=== PATIENT | male | born 1955 | race Caucasian/White ===

== ENCOUNTER → 2019-10-22 08:37 | Outpatient (POV) | payer MEDICARE, OTHER, SELFPAY | PROVIDERS: PCP Dermatology; Visit Provider Dermatology | DX: Z00.00 Encounter for general adult medical examination without abnormal findings (principal) ==

== ENCOUNTER 2019-12-12 18:01 | Emergency (ER) | payer MEDICARE, OTHER, SELFPAY ==
[2019-12-12 18:22] VITALS: BP 159/91; PULSE 79; RESP 19; TEMP 37.2; O2SAT 96; BMI 28.8
--- NOTE | 2019-12-12 18:38 | HMH.EDUTC ---
[facility] Disposition Clinical Impression: Sinusitis Qualifiers: Sinusitis location: unspecified location Chronicity: unspecified Qualified Code(s): J32.9 - Chronic sinusitis, unspecified Disposition: Home, Self-Care Condition on Discharge: Good Instructions: Sinusitis, Sinus Headache, DI for Sinusitis, Azithromycin Additional Instructions: *Monitor Temp, Over the counter Motrin or Tylenol as directed/as needed Tylenol every 4 hours and Motrin every 6 hours (as long as your family doctor has told you that you can take it) for fever or pain. and straight to ER if unable to lower temp less than 101.0 after medication given *Sleep elevated *Humidifier/Vaporizer Monitor temp at least twice daily Take medication as prescribed, follow up immediately if any cough, shortness of breath or worsening of symptoms with family doctor for further evaluation and testing Return if needed Make sure to wash your hands, social distancing at least 6ft, and stay home. Your throat swab was sent for culture. Those results are typically sent to your primary care. Be sure to follow up in 2-3 days with your family doctor/primary care physician if no improvement so they can review those result and treat if necessary. If you don?t have a primary care doctor, I recommend you get one but in the mean time, you will have to return to a walk in clinic Follow up IMMEDIATELY for new or worsening symptoms or no Noticeable improvement over the next 48-72 hours. 911 for difficulty breathing or swallowing Prescriptions: Azithromycin [Z-David 250mg Tab*] 250 mg PO UD DOSE PK #6 tab Transmission Status: Received by [facility] #[id number] Referrals: Calixto Real [Primary Care Provider] - As needed Time of Disposition: 18:54 Medical Decision Making - Alan Inquiry Pt receiving controlled substance: No Alan was queried for this patient: No Vital Signs: 12/12/19 18:22 Temperature 99.0 F Temperature Source Oral Pulse Rate [Left Brachial] 79 Respiratory Rate 19 Blood Pressure [Left Arm] 159/91 H Blood Pressure Mean [Left Arm] 113 Blood Pressure Source [Left Arm] Automatic Cuff Blood Pressure Position [Left Arm] Sitting 02 Sat by Pulse Oximetry 96 Oxygen Delivery Method Room Air - Lab Data Lab results reviewed: Yes: I reviewed the patient's lab results. Lab Results 04/23/20 18:14: Influenza Type A Ag Negative, Influenza Type B Ag Negative 12/12/19 18:14: Strep Scn Rapid Clinic Negative Orders (Tests/Meds): ORDERS Category Date Time Status Strep Screen Confirmation Stat Micro 12/12/19 18:14 Received - Reevaluation(s) Time: 18:49 Reevaluation #1: Discussed and recommended chest xray with patient and he declined, denies any SOA, or chest congestion at this time Denies CP Denies any other problems [facility] HPI - General Stated complaint: Fever, body aches Time Seen by Provider: 12/12/19 18:38 Mode of Arrival: Ambulatory Source of Information: Patient Limitations: No Limitations Description of Symptoms (Recalled from Triage Doc. by RN): PATIENT C/O JOINT PAIN, BODY ACHES, HEADACHE, AND FEVER SINCE LAST NIGHT HEENT Symptoms (Recalled from RN notes): No Resp Symptoms (Recalled from RN notes): No Skin Symptoms (Recalled from RN notes): No MS Symptoms (Recalled from RN notes): No Functional Status (Recalled from RN notes): WNL - History of Present Illness Provider Complaint: Patient states that for the last three days he hasnt been feeling well States that he has been having low grade fever, feeling achy all over, sinus pain and pressure and headache States that he has also had some chills States that last night he was feeling worse and today still not feeling well so family wanted him to come in and get checked Denies cough, denies sore throat denies known exposure to COVID19 - Related Data Previous Rx's Medication Instructions Recorded Azithromycin [Z-David 250mg Tab*] 250 mg PO UD DOSE PK #6 tab 12/12/19 Allergies Allergy
[2019-12-12 18:39] LABS: UTC Strep Screen (Rapid) Negative (Negative)
[2019-12-12 18:40] LABS: UTC Influenza A Antigen Negative (Negative); UTC Influenza B Antigen Negative (Negative)
[2019-12-12 19:01] VITALS: BP 159/91; PULSE 79; RESP 19; TEMP 37.2; O2SAT 96
== END 2019-12-12 19:06 | disposition home or self-care (01) ==
PROVIDERS: Emergency Provider Nurse Practitioner; PCP Family Medicine
DX: J32.9 Chronic sinusitis, unspecified (principal)
CPT/HCPCS: G0463; 87804; 87880; 99202

== ENCOUNTER → 2019-12-17 15:22 | Outpatient (CLI) | payer MEDICARE, OTHER, SELFPAY ==
[2019-12-17 15:52] LABS: Basophils # 0.1 K/mm3 (0-0.2); Basophils % 1.4 % (0.1-2.0); Eosinophils # 0.3 K/mm3 (0.0-0.4); Eosinophils % 8.4 % (0.1-12.0); Hematocrit 42.4 % (42.0-52.0); Hemoglobin 14.6 g/dL (14.1-18.0); Lymphocytes # 0.8 K/mm3 (0.7-4.5); Lymphocytes % 21.2 % (10-50); Mean Corpuscular HGB Conc 34.4 g/dL (31.8-35.4); Mean Corpuscular Hemoglobin 29.9 pg (27.0-31.2); Mean Corpuscular Volume 86.8 fl (80-94); Mean Platelet Volume 7.7 fl (7.4-10.4); Monocytes # 0.3 K/mm3 (0.1-1.0); Monocytes % 8.2 % (1.7-9.3); Neutrophils # 2.3 K/mm3 (1.8-7.8); Neutrophils % 60.8 % (37.0-80.0); Platelet Count 209 K/mm3 (142-424); Red Blood Count 4.89 M/mm3 (4.60-6.20); Red Cell Distribution Width 13.2 % (11.5-17.5); White Blood Count 3.8 K/mm3 (4.8-10.8)
[2019-12-17 16:20] LABS: Chloride 101 mmol/L (98-107); Sodium 140 mmol/L (136-145)
[2019-12-17 16:22] LABS: Alanine Aminotransferase 34 U/L (12-78); Alkaline Phosphatase 65 U/L (38-126); Aspartate Amino Transferase 33 U/L (17-59); Bilirubin,Total 0.3 mg/dl (0.2-1.3); Blood Urea Nitrogen 14 mg/dl (9-20); Carbon Dioxide 31 mmol/L (22.0-30.0); Estimated Glomerular Filt Rate 113 ml/min (>60); GFR (African American) 137 ML/MIN (>60)
[2019-12-17 16:23] LABS: Albumin Level 3.9 g/dl (3.5-5.0); Albumin/Globulin Ratio 1.4 (1.1-1.8); Calcium 9.3 mg/dl (8.4-10.2); Globulin 2.8 g/dL (1.3-3.2); Glucose 104 mg/dl (74-100); Total Protein,Serum 6.7 g/dl (6.3-8.2)
[2019-12-17 16:29] LABS: C-Reactive Protein 11.2 mg/L (0-4)
[2019-12-17 16:45] LABS: Erythrocyte Sedimentation Rate 20 mm/hr (0-20)
[2019-12-17 16:54] LABS: Prostate Specific Ag Screen 0.5 ng/ml (0.0-4.0); Thyroid Stimulating Hormone 1.71 uIU/mL (0.465-4.68)
[2019-12-20 01:07] LABS: IgG P18 Ab. Absent (.); IgG P23 Ab. Absent (.); IgG P28 Ab. Absent (.); IgG P30 Ab. Absent (.); IgG P39 Ab. Absent (.); IgG P41 Ab. Absent (.); IgG P45 Ab. Absent (.); IgG P58 Ab. Absent (.); IgG P66 Ab. Absent (.); IgG P93 Ab. Absent (.); IgM P23 Ab. Absent (.); IgM P39 Ab. Absent (.); IgM P41 Ab. Absent (.)
[2019-12-20 09:24] LABS: Lyme IgG WB Interp. Negative (.); Lyme IgM WB Interp. Negative (.)
== END ==
PROVIDERS: Visit Provider Nurse Practitioner Adult Health
DX: S80.869A Insect bite (nonvenomous), unspecified lower leg, initial encounter (principal); R63.4 Abnormal weight loss; M25.50 Pain in unspecified joint; Z12.5 Encounter for screening for malignant neoplasm of prostate
CPT/HCPCS: 36415; 80053; 84443; 85025; 85651; 86140; 86617; G0103

== ENCOUNTER → 2020-10-20 10:38 | Outpatient (POV) | payer MEDICARE, OTHER, SELFPAY | PROVIDERS: Visit Provider Dermatology | DX: Z00.00 Encounter for general adult medical examination without abnormal findings (principal) ==

== ENCOUNTER 2020-11-03 20:09 | Emergency (ER) | payer MEDICARE, OTHER, SELFPAY ==
[2020-11-03 20:40] VITALS: BP 159/78; PULSE 61; RESP 19; TEMP 36.8; O2SAT 98; BMI 27.6
--- NOTE | 2020-11-03 21:23 | HMH.EDUTC ---
[facility] Disposition Condition on Discharge: Good Time of Disposition: 22:00 <Юлия Lizama E - Last Filed: 11/03/20 21:59> <Vishal Negron - Last Filed: 11/03/20 23:07> Clinical Impression: Nailbed laceration, finger Qualifiers: Encounter type: initial encounter Qualified Code(s): S61.319A - Laceration without foreign body of unspecified finger with damage to nail, initial encounter Disposition: Home, Self-Care Instructions: DI for Laceration Repair, DI for Nail Bed Injury Additional Instructions: sutures out 10-12 days and recheck if any problems Prescriptions: cephALEXin [cephALEXin 500mg capsule*] 500 mg PO TID #30 cap Transmission Status: Pending to [facility] #[id number] Referrals: Calixto Real [Primary Care Provider] - Medical Decision Making - Alan Inquiry Pt receiving controlled substance: No Alan was queried for this patient: No - Radiology Data #1 Image(s): Hand Image Reviewed: Yes I reviewed the patient's radiology image Preliminary Findings: No Fracture Seen <Юлия Lizama - Last Filed: 11/03/20 21:59> Vital Signs: 11/03/20 20:40 11/03/20 22:03 Temperature 98.2 F 97.8 F Temperature Source Oral Oral Pulse Rate [Right Brachial] 61 57 L Respiratory Rate 19 14 Blood Pressure [Right Arm] 159/78 H 166/82 H Blood Pressure Mean [Right Arm] 105 110 Blood Pressure Source [Right Arm] Automatic Cuff Blood Pressure Position [Right Arm] Sitting 02 Sat by Pulse Oximetry 98 98 Oxygen Delivery Method Room Air Orders (Tests/Meds): ED MEDICATIONS Discontinued Medications Generic Name Dose Route Start Last Admin Trade Name Freq PRN Reason Stop Dose Admin Tetanus/Reduced Diphtheria/Acell Pertussis 0.5 ml 11/03/20 21:29 11/03/20 21:36 Tet/Diphth/Pert-Adult 0.5ml Syringe IM 11/03/20 21:30 0.5 ml .ONCE ONE Administration ORDERS Category Date Time Status Hand XR left minimum 3 views [XR hand LT min 3V] Stat Exams 11/03/20 21:29 Taken Medical Decision Narrative: Spoke with Dr Negron and he viewed laceration and patient to be sent to ED for closure of wound due to extending through nailbed (Юлия Lizama E) [facility] HPI - General Mode of Arrival: Ambulatory Source of Information: Patient Limitations: No Limitations Description of Symptoms (Recalled from Triage Doc. by RN): PATIENT STATES HE CUT HIS LEFT PINKY FINGERTIP ON A PIECE OF MACHINERY TODAY HEENT Symptoms (Recalled from RN notes): No Resp Symptoms (Recalled from RN notes): No Skin Symptoms (Recalled from RN notes): Yes MS Symptoms (Recalled from RN notes): No Functional Status (Recalled from RN notes): WNL - History of Present Illness Provider Complaint: Patient states that he was using a piece of machinery about 1630 today when it slipped and cut him on the tip of his left little finger States that it looked like the only thing holding it on was a small piece of skin so he pulled it back up into place and cleaned it with soap and water wrapped it up States that he was concerned [place] he was in the barn for infection so he came in to have it looked at and get a tetanus shot - Worker's Comp Is this a Worker's Comp case?: No <LizamaЮлия watt E - Last Filed: 11/03/20 21:59> - General Source of Information: Spouse, Medical Record - History of Present Illness Onset (ago): hour(s) Location: upper extremity Severity: moderate Associated symptoms: denies other symptoms <Vishal Negron - Last Filed: 11/03/20 23:07> - General Stated complaint: AC 11/03/20@4:30 cut left finger Time Seen by Provider: 11/03/20 20:45 - Related Data Previous Rx's Medication Instructions Recorded cephALEXin [cephALEXin 500mg 500 mg PO TID #30 cap 11/03/20 capsule*] Allergies Allergy/AdvReac Type Severity Reaction Status Date / Time No Known Allergies Allergy Verified 12/12/19 18:28 [facility] History - Hepatitis A Screen Drug use history?: No High risk sexual behaviors?: No History of sexually tr
--- NOTE | 2020-11-03 21:29 | XR_ITS ---
PROCEDURE: XR HAND LT MIN 3V CLINICAL INDICATION: INJURY Pain COMPARISON: No exams were available for comparison FINDINGS: No fracture or dislocation. No lytic or blastic change. There is normal mineralization. The joint spaces are well-preserved. No significant degenerative/arthritic changes. No erosive changes evident. Other findings:None. IMPRESSION: No acute findings. Dictated by: Sawyer De La O MD 11/04/2020 06:51 Sawyer De La O MD in [place] 11/04/2020 06:51
[2020-11-03 22:03] VITALS: BP 166/82; PULSE 57; RESP 14; TEMP 36.6; O2SAT 98; BMI 27.6
[2020-11-03 23:22] VITALS: BP 154/82; PULSE 65; RESP 18; TEMP 36.8; O2SAT 98
== END 2020-11-03 23:27 | disposition home or self-care (01) ==
LOC: UTC 21:31 → ER 21:58
PROVIDERS: Emergency Provider Emergency Medicine; PCP Family Medicine
DX: S61.317A Laceration without foreign body of left little finger with damage to nail, initial encounter (principal); W31.9XXA Contact with unspecified machinery, initial encounter; Y92.018 Other place in single-family (private) house as the place of occurrence of the external cause; Z23 Encounter for immunization
CPT/HCPCS: 11760; 73130; 90715; 99282

== ENCOUNTER 2020-11-16 08:09 | Emergency (ER) | payer MEDICARE, OTHER, SELFPAY ==
[2020-11-16 08:10] VITALS: BP 132/74; PULSE 78; RESP 16; TEMP 36.6; O2SAT 98; BMI 25.7
--- NOTE | 2020-11-16 08:12 | HMH.EDGENADL ---
ED Disposition Referrals: Calixto Real [Primary Care Provider] - Attestation: On , the high probability of a clinically significant, sudden or life threatening deterioration of the following system(s) required my full and direct attention, intervention and personal management. The time I documented below is in addition to time spent performing reported procedures but includes the following listed in this critical care notation. General Adult HPI - General Stated complaint: suture removal - Related Data Previous Rx's Medication Instructions Recorded cephALEXin [cephALEXin 500mg 500 mg PO TID #30 cap 11/03/20 capsule*] Allergies Allergy/AdvReac Type Severity Reaction Status Date / Time No Known Allergies Allergy Verified 12/12/19 18:28 [facility] History - Hepatitis A Screen Attestation statement:: This patient has been screened for Hepatitis A risk factors. - Social History Alcohol Intake: never Occupational Status: other
[2020-11-16 09:25] VITALS: BP 111/75; PULSE 85; RESP 16; TEMP 36.6; O2SAT 98
== END 2020-11-16 09:28 | disposition home or self-care (01) ==
PROVIDERS: Emergency Provider Emergency Medicine; PCP Family Medicine
DX: S61.317D Laceration without foreign body of left little finger with damage to nail, subsequent encounter (principal)
CPT/HCPCS: 99283

== ENCOUNTER → 2021-12-21 07:54 | Outpatient (POV) | payer MEDICARE, OTHER, SELFPAY | PROVIDERS: Visit Provider Dermatology | DX: Z00.00 Encounter for general adult medical examination without abnormal findings (principal) ==

== ENCOUNTER → 2022-04-05 08:10 | Outpatient (POV) | payer MEDICARE, OTHER, SELFPAY | PROVIDERS: Visit Provider Dermatology | DX: Z00.00 Encounter for general adult medical examination without abnormal findings (principal) ==

== ENCOUNTER → 2023-02-23 14:50 | Outpatient (CLI) | payer MEDICARE, OTHER, SELFPAY ==
--- NOTE | 2023-02-23 14:54 | XR_ITS ---
FINAL REPORT CLINICAL HISTORY: cough, decreased lung sounds, dyspnea, fevers FINDINGS: Two views of the chest were obtained. The heart size and pulmonary vascularity are within normal limits. The mediastinum is normal. No acute pulmonary abnormality is identified. There is no pneumothorax. The bony thorax is intact. IMPRESSION: No active cardiopulmonary disease. Reviewed, Interpreted and Dictated by Ryan Bill III, MD Transcribed by Aracelis Gupta Authenticated and [facility]
[2023-02-23 15:02] LABS: Microscopic, Urine URINE MICROSCOPIC (MICROSCOPIC)
[2023-02-23 15:14] LABS: Appearance,Urine CLEAR (Clear); Bilirubin,Urine Negative (Negative); Blood, Urine Negative (Negative); Color,Urine YELLOW (Yellow); Glucose,Urine (UA) Negative (Negative); Ketones,Urine Negative (Negative); Leukocyte Esterase,Urine Negative (Negative); Nitrate,Urine Negative (Negative); PH,Urine 5.5 (5.0-8.5); Protein,Urine TRACE (Negative); Specific Gravity, Urine >= 1.030 (1.005-1.030); Urobilinogen,Urine 0.2 EU/dl (0.2)
[2023-02-23 15:17] LABS: Basophils % 0.2 % (0.1-2.0); Eosinophils % 1.1 % (0.1-12.0); Hematocrit 44.6 % (42.0-52.0); Hemoglobin 14.8 g/dL (14.1-18.0); Lymphocytes # 0.6 K/mm3 (0.7-4.5); Lymphocytes % 23.4 % (10-50); Mean Corpuscular HGB Conc 33.1 g/dL (31.8-35.4); Mean Corpuscular Hemoglobin 29.8 pg (27.0-31.2); Mean Platelet Volume 8.4 fl (7.4-10.4); Monocytes # 0.3 K/mm3 (0.1-1.0); Monocytes % 11.3 % (1.7-9.3); Neutrophils # 1.5 K/mm3 (1.8-7.8); Neutrophils % 63.9 % (37.0-80.0); Platelet Count 127 K/mm3 (142-424); Red Blood Count 4.96 M/mm3 (4.60-6.20); Red Cell Distribution Width 13.4 % (11.5-17.5); White Blood Count 2.4 K/mm3 (4.8-10.8)
[2023-02-23 15:41] LABS: Bacteria,Urine Trace /lpf; Squamous Epithelial Cell,Urine Occasional #/hpf (0-5); WBC,Urine Occasional #/hpf (0-3)
[2023-02-23 15:55] LABS: Erythrocyte Sedimentation Rate 13 mm/hr (0-20)
[2023-02-23 16:01] LABS: Alanine Aminotransferase 27 U/L (12-78); Albumin Level 4.1 g/dl (3.5-5.0); Albumin/Globulin Ratio 1.6 (1.1-1.8); Alkaline Phosphatase 67 U/L (38-126); Amylase 135 U/L (30-110); Anion Gap 12.8 mEq/L (5-15); Aspartate Amino Transferase 44 U/L (17-59); Blood Urea Nitrogen 22 mg/dl (9-20); Calcium 8.6 mg/dl (8.4-10.2); Carbon Dioxide 28 mmol/L (22.0-30.0); Chloride 103 mmol/L (98-107); Chol/HDL Ratio 2.7 (1-3.5); Cholesterol 118 mg/dl (140-200); Estimated Glomerular Filt Rate 74 ml/min (>60); GFR (African American) 90 ML/MIN (>60); Globulin 2.5 g/dL (1.3-3.2); Glucose 93 mg/dl (74-100); HDL Cholesterol 43 mg/dl (40-60); Lipase 334 U/L (23-300); Potassium 4.8 mmoL/L (3.5-5.1); Sodium 139 mmol/L (136-145); Total Protein,Serum 6.6 g/dl (6.3-8.2); Triglycerides 111 mg/dl (30-150); VLDL Cholesterol 22 mg/dL (0-40)
[2023-02-23 16:05] LABS: Bilirubin,Total < 0.1 mg/dl (0.2-1.3)
[2023-02-23 16:13] LABS: C-Reactive Protein 0.6 mg/L (0-4)
[2023-02-23 16:17] LABS: 25-OH Vitamin D, Total 67.6 ng/mL (30-100)
[2023-02-23 16:33] LABS: Prostate Specific Ag Screen 0.3 ng/ml (0.0-4.0); Thyroid Stimulating Hormone 1.66 uIU/mL (0.465-4.68)
[2023-02-23 16:54] LABS: Vitamin B12 > 1000 pg/mL (239-931)
[2023-02-24 11:28] LABS: Adenovirus F 40/41, stool Not Detected (NotDetected); Astrovirus Not Detected (NotDetected); Campylobacter Not Detected (NotDetected); Clostridium Difficile A/B, PCR Not Detected (NotDetected); Cryptosporidium Not Detected (NotDetected); Cyclospora Cayetanesis Not Detected (NotDetected); Entamoeba histolytica Not Detected (NotDetected); Enteroaggregative E coli Not Detected (NotDetected); Enterotoxigenic E coli Not Detected (NotDetected); Giardia lamblia Not Detected (NotDetected); Norovirus Not Detected (NotDetected); Plesimonas Shigalloides, PCR Not Detected (NotDetected); Rotavirus A Not Detected (NotDetected); Salmonella, PCR Not Detected (NotDetected); Sapovirus Not Detected (NotDetected); Shiga-like toxin E coli Not Detected (NotDetected); Shigella Enterovasive E coli Not Detected (NotDetected); Vibrio Cholerae Not Detected (NotDetected); Vibrio, PCR Not Detected (NotDetected); Yersinia Entercolitica, PCR Not Detected (NotDetected)
[2023-02-24 19:07] LABS: Enteropathogenic E coli Detected (NotDetected)
[2023-02-25 08:17] LABS: Testosterone,Total 162 ng/dL (264-916)
== END ==
PROVIDERS: PCP Nurse Practitioner Family; Visit Provider Nurse Practitioner Family
DX: R05.9 Cough, unspecified (principal); R06.89 Other abnormalities of breathing; E55.9 Vitamin D deficiency, unspecified; R53.83 Other fatigue; E78.9 Disorder of lipoprotein metabolism, unspecified; Z12.5 Encounter for screening for malignant neoplasm of prostate; M25.50 Pain in unspecified joint; R10.12 Left upper quadrant pain; Z13.1 Encounter for screening for diabetes mellitus; Z13.220 Encounter for screening for lipoid disorders; R19.7 Diarrhea, unspecified
CPT/HCPCS: 71046; 80053; 80061; 81001; 82150; 82306; 82607; 83690; 84403; 84443; 85025; 85651; 86140; 87086; 87506; G0103

== ENCOUNTER → 2023-02-28 07:37 | Outpatient (CLI) | payer MEDICARE, OTHER, SELFPAY ==
--- NOTE | 2023-02-28 07:43 | CT_ITS ---
FINAL REPORT TECHNIQUE: Axial CT images of the abdomen and pelvis were obtained before and after the administration of IV contrast. Oral contrast was administered.This study was performed with techniques to keep radiation doses as low as reasonably achievable (ALARA). Individualized dose reduction techniques using automated exposure control or adjustment of mA and/or kV according to the patient''s size were employed. CLINICAL HISTORY: LUQ pain, elevated lipase and amylase COMPARISON: None FINDINGS: Abdomen: There are several small nodules noted and both lower lung kim, the largest of which is a 4 mm nodule in the right middle lobe. Moderate coronary artery calcification is seen. There are several small subcentimeter hepatic cysts present. There is a small calcification immediately adjacent to the liver seen best on axial image #37 that may represent a small 2 mm stone in the cystic duct.. The spleen is unremarkable. No adrenal masses present. The pancreas has an unremarkable appearance. The kidneys enhance normally. The aorta is normal in caliber. There is no free fluid or adenopathy. No mass or abnormal fluid collection is seen. Precontrast images demonstrate no evidence of nephrolithiasis. Pelvis: The appendix is not well visualized and may have been surgically resected. The urinary bladder is unremarkable. There are postoperative changes in the sigmoid colon. There are multiple slightly enlarged inguinal nodes, a nonspecific finding but may be reactive. There is no evidence of bowel obstruction. IMPRESSION: Several small nodules are present in the lower lung kim bilaterally, the largest measuring 4 mm in the right middle lobe. According to the Fleischner Society guidelines, if the patient is at low risk no follow-up is necessary. If the patient is a high risk patient a 12-month follow-up CT is suggested. Moderate coronary artery calcifications. Questionable small stone in the region of the cystic duct measuring 2 mm in size. Multiple slightly enlarged inguinal nodes, nonspecific but may be reactive. Reviewed, Interpreted and Dictated by Ryan Bill III, MD Transcribed by Hannah Kumari Authenticated and [facility]
== END ==
PROVIDERS: PCP Nurse Practitioner Family; Visit Provider Nurse Practitioner Family
DX: R10.12 Left upper quadrant pain (principal); R74.8 Abnormal levels of other serum enzymes
CPT/HCPCS: 74178; Q9967

== ENCOUNTER → 2023-03-28 08:38 | Outpatient (CLI) | payer MEDICARE, OTHER, SELFPAY ==
[2023-03-28 09:06] VITALS: BP 156/76; PULSE 58; RESP 16; O2SAT 98
[2023-03-28 09:30] VITALS: BP 152/80; PULSE 56; RESP 16; O2SAT 97
== END ==
PROVIDERS: PCP Nurse Practitioner Family; Visit Provider Internal Medicine
DX: I25.10 Atherosclerotic heart disease of native coronary artery without angina pectoris (principal); I25.84 Coronary atherosclerosis due to calcified coronary lesion
CPT/HCPCS: 75574; Q9967

== ENCOUNTER 2023-05-03 08:25 | Day surgery (SDC) | payer MEDICARE, OTHER, SELFPAY ==
[2023-05-03] VITALS (12 sets, daily range): BP systolic 100–138; BP diastolic 53–81; PULSE 47–58; RESP 16–20; TEMP 36.6; O2SAT 95–100; BMI 26.8
--- NOTE | 2023-05-03 07:09 | IR_ITS ---
APPROVED REPORT Patient Location: Outpatient PROCEDURES Left heart catheterization Left ventriculogram Selective coronary angiogram INDICATION Known coronary artery disease, Angina pectoris, Abnormal calcium score greater than 1000 Informed consent was obtained prior to the procedure. COMPLICATIONS None Estimated Blood Loss: Less than 10 mls TECHNIQUE One percent lidocaine used to anesthetize the right anterior aspect of the wrist. The right radial artery was accessed via the Seldinger technique. A 6 Montserratian sheath was placed in the right radial artery. 2.5 mg of Verapamil, 800 mcg of nitroglycerin, 1mg Lidocaine and 5000 U Heparin were given through the arterial sheath. The papa catheter was also used to perform left heart catheterization, left ventriculogram and selective coronary angiogram. At the end of the procedure the sheath was removed good hemostasis was achieved using Traclet band, patient was transferred to the postop holding area in stable condition. ANGIOGRAPHIC RESULTS The left main artery Has distal eccentric 30% stenosis The left anterior descending artery Has ostial eccentric 30 to 40% stenosis with mid vessel diffuse 10 to 20% stenoses. A large first diagonal artery has an ostial 40 to 50% stenosis The circumflex artery Is a nondominant vessel and gives rise to a small 1 mm first obtuse marginal artery which has an ostial 90% stenosis. The remaining circumflex artery has 20% diffuse stenoses The right coronary artery Is a dominant vessel and has diffuse 20% stenoses with a focal 30 to 40% proximal stenosis. The remaining vessel has diffuse 20% stenosis The NIEVES ventriculogram reveals Normal 65% The left ventricular end-diastolic pressure 10 mmHg IMPRESSION Eccentric distal left main disease and proximal LAD disease which in itself is a higher risk lesion however both lesions are nonflow limiting and best managed medically Severe disease in a small obtuse marginal artery too small for percutaneous intervention Mild to moderate disease throughout the dominant right coronary artery as described above Normal ejection fraction Normal left ventricular end-diastolic pressure PLAN 1. These lesions are best managed medically. 2. Recommend LDL at 55 or less to be achieved with high intensity statin 3. Aggressive risk factor modification 4. Standard therapy for ischemic heart disease Electronically signed by : Sixto Oconnell MD 05/03/2023 10:12:51
[2023-05-03 09:02] LABS: Basophils % 0.3 % (0.1-2.0); Hemoglobin 13.5 g/dL (14.1-18.0); Lymphocytes # 1.4 K/mm3 (0.7-4.5); Lymphocytes % 21.2 % (10-50); Mean Corpuscular Hemoglobin 30.1 pg (27.0-31.2); Mean Corpuscular Volume 91.3 fl (80-94); Mean Platelet Volume 8.4 fl (7.4-10.4); Monocytes # 0.5 K/mm3 (0.1-1.0); Monocytes % 7.4 % (1.7-9.3); Neutrophils # 3.9 K/mm3 (1.8-7.8); Neutrophils % 57.1 % (37.0-80.0); Platelet Count 214 K/mm3 (142-424); Red Cell Distribution Width 14.8 % (11.5-17.5); White Blood Count 6.8 K/mm3 (4.8-10.8)
[2023-05-03 09:13] LABS: Anion Gap 8.2 mEq/L (5-15); Blood Urea Nitrogen 16 mg/dl (9-20); Calcium 8.8 mg/dl (8.4-10.2); Carbon Dioxide 30 mmol/L (22.0-30.0); Chloride 106 mmol/L (98-107); Creatinine Clearance Estimated 95 mL/min (50-200); Estimated Glomerular Filt Rate 112 ml/min (>60); GFR (African American) 136 ML/MIN (>60); Glucose 98 mg/dl (74-100); Potassium 4.2 mmoL/L (3.5-5.1); Sodium 140 mmol/L (136-145)
== END 2023-05-03 12:59 | disposition home or self-care (01) ==
LOC: CATHLAB 08:27
PROVIDERS: PCP Nurse Practitioner Family; Visit Provider Internal Medicine
DX: I10 Essential (primary) hypertension (principal); I25.110 Atherosclerotic heart disease of native coronary artery with unstable angina pectoris; R94.31 Abnormal electrocardiogram [ECG] [EKG]; Z79.899 Other long term (current) drug therapy
CPT/HCPCS: 80048; 85025; 93458; 99152; C1725; C1769; J1644; Q9967

== ENCOUNTER → 2023-05-31 08:56 | Outpatient (CLI) | payer MEDICARE, OTHER, SELFPAY ==
[2023-05-31 10:09] LABS: Basophils # 0.1 K/mm3 (0-0.2); Basophils % 0.7 % (0.1-2.0); Eosinophils # 0.6 K/mm3 (0.0-0.4); Eosinophils % 9.2 % (0.1-12.0); Hematocrit 43.8 % (42.0-52.0); Hemoglobin 14.8 g/dL (14.1-18.0); Lymphocytes # 1.4 K/mm3 (0.7-4.5); Lymphocytes % 21.5 % (10-50); Mean Corpuscular HGB Conc 33.8 g/dL (31.8-35.4); Mean Corpuscular Hemoglobin 31.9 pg (27.0-31.2); Mean Corpuscular Volume 94.3 fl (80-94); Monocytes # 0.4 K/mm3 (0.1-1.0); Monocytes % 6.2 % (1.7-9.3); Neutrophils # 4.2 K/mm3 (1.8-7.8); Neutrophils % 62.4 % (37.0-80.0); Platelet Count 208 K/mm3 (142-424); Red Blood Count 4.65 M/mm3 (4.60-6.20); Red Cell Distribution Width 14.3 % (11.5-17.5); White Blood Count 6.7 K/mm3 (4.8-10.8)
[2023-05-31 10:21] LABS: Hemoglobin A1C 5.4 % (4.0-6.0)
[2023-05-31 10:31] LABS: Alanine Aminotransferase 24 U/L (12-78); Albumin Level 4.3 g/dl (3.5-5.0); Albumin/Globulin Ratio 1.5 (1.1-1.8); Alkaline Phosphatase 68 U/L (38-126); Anion Gap 10.1 mEq/L (5-15); Aspartate Amino Transferase 23 U/L (17-59); Bilirubin,Total 0.5 mg/dl (0.2-1.3); Blood Urea Nitrogen 17 mg/dl (9-20); Calcium 9.5 mg/dl (8.4-10.2); Carbon Dioxide 30 mmol/L (22.0-30.0); Chloride 105 mmol/L (98-107); Estimated Glomerular Filt Rate 112 ml/min (>60); GFR (African American) 136 ML/MIN (>60); Globulin 2.8 g/dL (1.3-3.2); Glucose 107 mg/dl (74-100); Potassium 5.1 mmoL/L (3.5-5.1); Sodium 140 mmol/L (136-145); Total Protein,Serum 7.1 g/dl (6.3-8.2)
[2023-06-06 11:42] LABS: LDL-C 45; LDL-P 383
[2023-06-06 11:43] LABS: Cholesterol, Total 112; HDL-C 57; Triglycerides 37
[2023-06-06 11:44] LABS: LP-IR Score 26
== END ==
PROVIDERS: Physician Assistant; PCP Family Medicine; Visit Provider Family Medicine
DX: E72.10 Disorders of sulfur-bearing amino-acid metabolism, unspecified (principal); R73.9 Hyperglycemia, unspecified; I10 Essential (primary) hypertension; E78.5 Hyperlipidemia, unspecified
CPT/HCPCS: 36415; 80053; 83036; 83090; 83704; 85025

== ENCOUNTER → 2023-06-15 09:20 | Outpatient (CLI) | payer MEDICARE, OTHER, SELFPAY | PROVIDERS: PCP Family Medicine; Visit Provider Physician Assistant | DX: I25.10 Atherosclerotic heart disease of native coronary artery without angina pectoris (principal) ==

== ENCOUNTER 2023-11-22 12:26 | Outpatient (CLI) | payer MEDICARE, OTHER, SELFPAY ==
--- NOTE | 2023-11-22 12:55 | CA_ITS ---
FINAL REPORT TECHNIQUE: Color Doppler, duplex Doppler and martino scale sonography of the bilateral neck arterial vasculature was performed. Velocities were measured in the carotid arteries. Stenosis evaluation based on the validated velocity criteria. CLINICAL HISTORY: HLD,CAD,HTN,BLADIMIR FINDINGS: The peak systolic velocity of the right common carotid artery is 108 cm/s. The peak systolic velocity of the right internal carotid artery is 88 cm/s and end diastolic velocity 17 cm/s. The ICA/CCA ratio is 1.1. A small amount of plaque is present. The right external carotid artery is patent. The right vertebral artery is patent with antegrade flow. The peak systolic velocity of the left common carotid artery is 102 cm/s. The peak systolic velocity of the left internal carotid artery is 101 cm/s and end diastolic velocity 29 cm/s. The ICA/CCA ratio is 1.5. A small amount of plaque is present. The left external carotid artery is patent.The left vertebral artery is patent with antegrade flow. IMPRESSION: Less than 50% bilateral carotid stenoses. Bilateral patent vertebral arteries with antegrade flow. If indicated, CTA or MRA could further evaluate. Reviewed, Interpreted and Dictated by Ryan Bill III, MD Transcribed by Isis Solorzano Authenticated and [facility]
== END 2023-11-22 23:59 ==
LOC: RT 12:27
PROVIDERS: PCP Internal Medicine; Visit Provider Physician Assistant
DX: R94.31 Abnormal electrocardiogram [ECG] [EKG]; I10 Essential (primary) hypertension; E78.5 Hyperlipidemia, unspecified; I25.10 Atherosclerotic heart disease of native coronary artery without angina pectoris; R09.89 Other specified symptoms and signs involving the circulatory and respiratory systems
CPT/HCPCS: 93880

== ENCOUNTER 2024-10-21 08:38 | Outpatient (CLI) | payer MEDICARE, OTHER, SELFPAY ==
[2024-10-21 09:05] LABS: Basophils % 0.6 % (0.1-2.0); Eosinophils # 0.4 K/mm3 (0.0-0.4); Eosinophils % 6.4 % (0.1-12.0); Hematocrit 41.9 % (42.0-52.0); Hemoglobin 14.4 g/dL (14.1-18.0); Lymphocytes # 1.2 K/mm3 (0.7-4.5); Lymphocytes % 19.1 % (10-50); Mean Corpuscular HGB Conc 34.4 g/dL (31.8-35.4); Mean Corpuscular Hemoglobin 31.1 pg (27.0-31.2); Mean Corpuscular Volume 90.5 fl (80-94); Mean Platelet Volume 10.1 fl (7.4-10.4); Monocytes # 0.6 K/mm3 (0.1-1.0); Monocytes % 9.3 % (1.7-9.3); Neutrophils # 4.2 K/mm3 (1.8-7.8); Neutrophils % 64.4 % (37.0-80.0); Platelet Count 234 K/mm3 (142-424); Red Blood Count 4.63 M/mm3 (4.60-6.20); Red Cell Distribution Width 13.3 % (11.5-17.5); White Blood Count 6.5 K/mm3 (4.8-10.8)
[2024-10-21 09:38] LABS: Alanine Aminotransferase 21 U/L (12-78); Albumin Level 4.2 g/dl (3.5-5.0); Anion Gap 9.3 mEq/L (5-15); Aspartate Amino Transferase 22 U/L (17-59); Bilirubin,Total 0.3 mg/dl (0.2-1.3); Blood Urea Nitrogen 21 mg/dl (9-20); Calcium 9.3 mg/dl (8.4-10.2); Carbon Dioxide 29 mmol/L (22.0-30.0); Chloride 106 mmol/L (98-107); Estimated Glomerular Filt Rate 96 ml/min (>60); GFR (African American) 116 ML/MIN (>60); Globulin 2.3 g/dL (1.3-3.2); Glucose 103 mg/dl (74-100); Potassium 4.3 mmoL/L (3.5-5.1); Sodium 140 mmol/L (136-145); Total Protein,Serum 6.5 g/dl (6.3-8.2)
[2024-10-21 09:39] LABS: Albumin/Globulin Ratio 1.8 (1.1-1.8); Alkaline Phosphatase 71 U/L (38-126); Chol/HDL Ratio 1.9 (1-3.5); Cholesterol 104 mg/dl (140-200); HDL Cholesterol 56 mg/dl (40-60); Triglycerides 31 mg/dl (30-150); VLDL Cholesterol 6 mg/dL (0-40)
[2024-10-21 09:49] LABS: Direct LDL Cholesterol 36.18 mg/dL (100-129)
[2024-10-21 10:10] LABS: Hemoglobin A1C 5.4 % (4.0-6.0)
== END 2024-10-21 23:59 | disposition home or self-care (01) ==
LOC: LAB 08:40
PROVIDERS: PCP Internal Medicine; Visit Provider Internal Medicine
DX: Z00.00 Encounter for general adult medical examination without abnormal findings (principal); Z13.220 Encounter for screening for lipoid disorders; Z13.1 Encounter for screening for diabetes mellitus; I11.9 Hypertensive heart disease without heart failure
CPT/HCPCS: 36415; 80053; 80061; 83036; 85025

== ENCOUNTER 2025-02-14 09:32 | Outpatient (CLI) | payer MEDICARE, OTHER, SELFPAY ==
--- OUTSIDE RECORDS SUMMARY | 2020-09-27 04:15 | XMS_ITS | Continuity of Care Document ---
Author Name [employer] Organization [facility] Care Team Providers Care Cardiac Monitor Technician Name Role Phone [facility] Unavailable Unavailable Medications Combined list of outpatient medications from Department of Defense and Veterans Affairs facilities.Medications provided include 1) outpatient medications from the last 15 months, and 2) patient-reported medications. Medication Details Route Status Patient Instructions Prescription Expires Prescription Number Last Dispense Date Ordering Provider Order Date Order Qty Source CHOLECALCIF AMANDA 25MCG (1,000UNIT) TAB TAKE ONE TABLET BY MOUTH DAILY ORAL ACTIVE [facility]av LAN [facility] LYSINE TAB TAKE 1 CAPSULES BY MOUTH DAILY ORAL ACTIVE [facility]anav LAN [facility] MULTIVITAMI NS W/MINERALS CAP/TAB TAKE 1 CAP(S)/T AB BY MOUTH DAILY ORAL ACTIVE [facility] Immunizations Combined list of available immunizations from the Department of Defense and Veterans Affairs facilities. Immunization Series Date Given Administered By Site Reaction Lot Number CVX Code Drug Library Technology Instructor Status Comments Source COVID-19 (PFIZER), MRNA, LNP-S, PF, 30 MCG/0.3 ML DOSE 2 2020 208 complet ed PFR; [id number]; [facility] COVID-19 (PFIZER), MRNA, LNP-S, PF, 30 MCG/0.3 ML DOSE 1 2020 208 complet ed PFR; [id number]; 1 [facility]
--- OUTSIDE RECORDS SUMMARY | 2025-01-02 07:15 | XMS_ITS | Encounter Summary ---
Author Organization [place] [address] Care Team Providers Care Relief Man Name Role Phone Amber Suarez MD Unavailable [phone] Grace Milian RN Unavailable [phone] Encounter Details Date Type Department Care Team (Latest Contact Info) Description 01/02/2025 7:15 AM EDT - 01/02/2025 8:25 AM EDT Hospital Encounter [facility] [address] [place], [place] [id number] Amber Suarez MD [address] [place] [address] Lung nodules Discharge Disposition: Home or Self Care Social History Tobacco Use Types Packs/Day Years Used Date Smoking Tobacco: Never Passive Smoke Exposure: Never Smokeless Tobacco: Never Alcohol Use Standard Drinks/Week Comments Not Currently 0 (1 standard drink = 0.6 oz pur e alcohol) PHQ-2 Answer Date Recorded PHQ-2 Total Score 0 09/11/2023 Sex and Gender Information Value Date Recorded Sex Assigned at Not on file Legal Sex Male 3:19 PM EDT Gender Identity Not on file Sexual Orientation Not on file documented as of this encounter Medications at Time of Discharge amLODIPine (NORVASC) 5 mg Oral Tablet Take 5 mg by mouth daily. aspirin 81 mg Oral Tablet, Delayed Release (E.C.) Take 81 mg by mouth daily. atorvastatin (LIPITOR) 40 mg Oral Tablet Take 40 mg by mouth daily. calcium carbonate-vitamin D3 250 mg-3.125 mcg (125 unit) Oral Tablet Take 1 Tablet by mouth 2 times daily (with meals). lisinopriL (PRINIVIL;ZESTRIL ) 20 mg Oral Tablet tablet Take 20 mg by mouth 2 times daily. 12/24/2022 multivitamin, stress formula (ALLBEE VIT WITH C & B COMPLEX) Oral Tablet Take 1 Tablet by mouth daily. UNABLE TO FIND Take 1 Tablet by mouth nightly. Med Name: Night Gain ZINC CITRATE ORAL Take by mouth. lactobacillus rhamnosus, GG, (CULTURELLE) 10 billion cell Oral Capsule Take 1 Capsule by mouth daily. documented as of this encounter Discharge Disposition Disposition Code Departure Means Destination Home or Self Care documented in this encounter Plan of Treatment Upcoming Encounters Date Type Department Care Team (Late st Contact Info) Description 01/26/2026 9:30 AM EDT Appointment [facility] [place] [address] Grisel Yeung MD [address] [place] [address] documented as of this encounter Procedures Procedure Name Priority Date/Time Associated Diagnosis Comments CBC WITH DIFF STAT 01/02/2025 8:50 AM EDT Lung nodules COMPREHENSIVE METABOLIC PANEL STAT 01/02/2025 8:50 AM EDT Lung nodules documented in this encounter Results * (ABNORMAL) COMPREHENSIVE METABOLIC PANEL (01/02/2025 8:50 AM EDT) Sodium 138 136 - 145 mmol/L 01/02/2025 9:11 AM EDT [facility] Potassium 4.5 3.5 - 5.0 mmol/L 01/02/2025 9:11 AM EDT [facility] Chloride 104 98 - 107 mmol/L 01/02/2025 9:11 AM EDT [facility] Total CO2 26 22 - 29 mmol/L 01/02/2025 9:11 AM EDT [facility] Anion Gap 8 7 - 16 mmol/L 01/02/2025 9:11 AM EDT [facility] Calcium 9.4 8.8 - 10.4 mg/dL 01/02/2025 9:11 AM EDT [facility] Glucose Lvl 106(H) 70 - 99 mg/dL 01/02/2025 9:11 AM EDT [facility] BUN 13 8 - 23 mg/dL 01/02/2025 9:11 AM EDT [facility] Creatinine 0.82 0.67 - 1.30 mg/dL 01/02/2025 9:11 AM EDT [facility] Albumin 4.3 3.2 - 4.6 gm/dL 01/02/2025 9:11 AM EDT [facility] Total Protein 7.1 6.4 - 8.3 gm/dL 01/02/2025 9:11 AM EDT [facility] Bili Total 0.5 0.2 - 1.4 mg/dL 01/02/2025 9:11 AM EDT [facility] ALT 14 <=41 U/L 01/02/2025 9:11 AM EDT [facility] AST 18 <=40 U/L 01/02/2025 9:11 AM EDT [facility] Alk Phos 82 40 - 129 U/L 01/02/2025 9:11 AM EDT [facility] eGFR (CKD-EPIcr 2020) 94 >=60 mL/min/1.7 3 m2 01/02/2025 9:11 AM EDT [facility] Comment:Estimated GFR was ca lculated using the CKD-EPIcr (2020) equation refit without race. The equation is recommended by the National Kid[employer] - [place] [employer] Neph[employer] Task Force. Blood VENOUS BLOOD / Unknown Venipuncture / Unknown 01/02/2025 8:50 AM EDT 01/02/2025 8:52 AM EDT us Amber Suarez MD CHEMISTRY ORDERABLES Fin al Result [facility] [address] [place] [address] * (ABNORMAL) CBC WITH DIFF (01/02/2025 8:50 AM EDT) [facility] Signature WBC 6.9 3.7 - 10.3 x10(3)/mc L 01/02/2025 8:55 AM EDT [facility] RBC 4.51(L) 4.60 - 6.10 x10(6)/mc L 01/02/2025 8:55 AM EDT [facility] Hgb 14.1 13.7 - 17.5 g/dL 01/02/2025 8:55 AM EDT [facility] Hct 41.9 40.0 - 51.0 % 01/02/2025 8:55 AM EDT [facility] MCV 92.9 80.0 - 100.0 fL 01/02/2025 8:55 AM EDT [facility] MCH 31.3 26.0 - 34.0 pg 01/02/2025 8:55 AM EDT [facility] MCHC 33.7 30.7 - 35.5 g/dL 01/02/2025 8:55 AM EDT [facility] RDW 13.2 <=14.9 % 01/02/2025 8:55 AM EDT [facility] Platelet 212 155 - 369 x10(3)/mc L 01/02/2025 8:55 AM EDT [facility] MPV 9.6 8.8 - 12.5 fL 01/02/2025 8:55 AM EDT [facility] Neut # Prelim 4.1 1.6 - 6.1 x10(3)/mc L 01/02/2025 8:55 AM T [facility] Comment:Preliminary automate d absolute neutrophil count. Value may change if manual differential is indicated. Neut Percent 59.0 % 01/02/2025 8:55 AM EDT [facility] Comment:Neutrophils equals s egs plus bands Imm Gran% 0.1 % 01/02/2025 8:55 AM T [facility] Comment:Automated count of m etamyelocytes, myelocytes and promyelocytes. Lymph Percent 20.1 % 01/02/2025 8:55 AM EDT [facility] [place] Percent 8.5 % 01/02/2025 8:55 AM EDT [facility] Eos Percent 12.0 % 01/02/2025 8:55 AM EDT [facility] Baso Percent 0.3 % 01/02/2025 8:55 AM EDT [facility] Neut # 4.1 1.6 - 6.1 x10(3)/mc L 01/02/2025 8:55 AM EDT [facility] Comment:Neutrophils equals s egs plus bands IMMGRAN# 0.0 0.0 - 0.1 x10(3)/mc L 01/02/2025 8:55 AM EDT [facility] Comment:Automated count of m etamyelocytes, myelocytes and promyelocytes. An absolute IG <0.1 is reported as 0.0. Lymph # 1.4 1.2 - 3.9 x10(3)/ L 01/02/2025 8:55 AM EDT [facility] [place] # 0.6 0.3 - 0.9 x10(3)/ L 01/02/2025 8:55 AM EDT [facility] Eos# 0.8(H) 0.0 - 0.5 x10(3)/ L 01/02/2025 8:55 AM EDT [facility] Baso # 0.0 0.0 - 0.1 x10(3)/ L 01/02/2025 8:55 AM EDT [facility] Blood VENOUS BLOOD / Unknown Venipuncture / Unknown 01/02/2025 8:50 AM EDT 01/02/2025 8:52 AM EDT us Amber Suarez MD HEMATOLOGY ORDERABLES Fi nal Result [facility] [address] [place] [id number] documented in this encounter Visit Diagnoses Diagnosis Lung nodules Other nonspecific abnormal finding of lung field documented in this encounter Care Teams Relief Man Relationship Specialty Start Date End Date Amber Suarez MD [address] [place] [id number] Internal Medicine-Hematology and Oncology 09/04/23 Grace Milian, RN Registered Nurse 09/15/23 documented as of this encounter
--- OUTSIDE RECORDS SUMMARY | 2025-01-02 08:26 | XMS_ITS | Encounter Summary ---
Author Organization [place] [address] Care Team Providers Care Fudger Name Role Phone Amber Suarez MD Unavailable [phone] Grace Milian RN Unavailable [phone] Reason for Referral * MRI/CAT Scan (Routine) - Authorization Not Needed Specialty Diagnoses / Procedures Referred By Kelsie torres Referred To Contact Radiology Diagnoses Lung nodules Procedures CT CHEST W CONTRAST Amber Suarez MD [address] [place] [address] Phone: tel: fax: [place] [address] Phone: tel: fax: Referral ID Status Reason Start Date Expiration Date Visits Requested Visits Authorized [id number] Authorization Not Needed 10/02/2024 10/02/2025 1 1 Reason for Visit * MRI/CAT Scan (Routine) - Authorization Not Needed Specialty Diagnoses / Procedures Referred By Kelsie torres Referred To Contact Radiology Diagnoses Lung nodules Procedures CT CHEST W CONTRAST Amber Suarez MD [address] [place] [address] Phone: tel: fax: [facility] [place] [address] Phone: tel: fax: Referral ID Status Reason Start Date Expiration Date Visits Requested Visits Authorized [id number] Authorization Not Needed 10/02/2024 10/02/2025 1 1 Encounter Details Date Type Department Care Team (Latest Contact Info) Description 01/02/2025 8:26 AM EDT - 01/02/2025 9:24 AM EDT Hospital Encounter [facility] [place] [address] Amber Suarez MD [address] [place] [address] Lung nodules Discharge Disposition: Home or Self [...] Info) Description 01/26/2026 9:30 AM EDT Appointment [facility] [place] [address] Grisel Yeung MD [address] [place] [address] documented as of this encounter Procedures Procedure Name Priority Date/Time Associated Diagnosis Comments CT CHEST W CONTRAST Routine 01/02/2025 9 :05 AM EDT Lung nodules documented in this encounter Results * CT CHEST W CONTRAST (01/02/2025 9:05 AM EDT) Anatomical Region Laterality Modality Chest Computed Tomogra phy 01/02/2025 9:05 AM EDT Impressions 01/02/2025 1:30 PM EDT Stable chest CT. Continued follow-up in one year recommended - Note: Radiology results need to be interpreted within a comprehensive clinical context. If you have questions about the radiology report, please contact the office of the ordering clinician. Narrative 01/02/2025 1:[address] CHEST WITH CONTRAST, 01/02/2025 9:05 AM CLINICAL HISTORY: R91.8-Other nonspecific abnormal finding of lung [id number]. COMPARISON: 10/02/2024 and older studies PROCEDURE COMMENTS: Multi detector CT scanning of the chest. Multiplanar reconstructions per protocol. Isovue 370 IV contrast given as recorded in EPIC. Dose 1 : CT DLP Total : 202.89 mGycm DLP Spiral Max : 192.48 mGycm Maximum CTDI Vol : 7.7 mGy SSDE : 5.775 mGy SSDE Diameter : 43.6 cm SSDE Source : Lat FINDINGS: 5 mm nodular opacity superior segment LEFT lower lobe that was cystic in August 2023 but is now fluid-filled is stable. No new pulmonary mass or nodule. No new mediastinal or hilar adenopathy. Small RIGHT middle lobe nodule stable Tracheobronchial tree patent. No pleural or pericardial effusion Coronary artery calcification: Mild. Procedure Note Calixto Yu MD - 01/02/2025 CT CHEST WITH CONTRAST, 01/02/2025 9:05 AM CLINICAL HISTORY: R91.8-Other nonspecific abnormal finding of lung [id number]. COMPARISON: 10/02/2024 and older studies PROCEDURE COMMENTS: Multi detector CT scanning of the chest. Multiplanar reconstructions per protocol. Isovue 370 IV contrast given as recorded inEPIC. Dose 1 : CT DLP Total : 202.89 mGycm DLP Spiral Max : 192.48 mGycm Maximum CTDI Vol : 7.7 mGy SSDE : 5.775 mGy SSDE Diameter : 43.6 cm SSDE Source : Lat FINDINGS: 5 mm nodular opacity superior segment LEFT lower lobe that wascystic in August 2023 but is now fluid-filled is stable. No new pulmonary massor nodule. No new mediastinal or hilar adenopathy. Small RIGHT middle lobenodule stable Tracheobronchial tree patent. No pleural or pericardial effusion Coronary artery calcification: Mild. IMPRESSION: Stable chest CT. Continued follow-up in one year recommended - Note: Radiology results need to be interpreted within a comprehensiveclinical context. If you have questions about the radiology report, please contactthe office of the ordering clinician. Amber Suarez MD IM CT ORDERABLES Final Result documented in this encounter Visit Diagnoses Diagnosis Lung nodules Other nonspecific abnormal finding of lung field documented in this encounter Administered Medications Inactive Administered Medications - up to 1 most recent administrations Medication Order MAR Action Action Date Dose Rate Site iopamidoL (ISOVUE-370) 370 mg iodine /mL (76 %) injection (LOW) 75 mL 75 mL, Intravenous, ONCE PRN, 1 dose, Starting on Rosa 01/02/25 at 0853, Until Rosa 01/02/25 at 0905, Radiography/Imaging, Radiology Procedure, VESICANT , CT (Contrasts) Given 01/02/2025 9:05 AM EDT 75 mL sodium chloride 0.9% syringe Intravenous, ONCE PRN, 1 dose, Starting on Rosa 01/02/25 at 0853, Until Rosa 01/02/25 at 0906, Line Care, Flush peripheral lines every 12 hours, central lines every 8 hours, and after IV medication, CT (Contrasts) Given 01/02/2025 9:06 AM EDT documented in this encounter Care Teams Fudger Relationship Specialty Start Date End Date Amber Suarez MD [address] [place] [address] Internal Medicine-Hematology and Oncology 09/04/23 Grace Milian, ZOE Registered Nurse 09/15/23 documented as of this encounter
--- OUTSIDE RECORDS SUMMARY | 2025-01-02 09:25 | XMS_ITS | Encounter Summary ---
Author Organization [place] [address] Care Team Providers Care New Business Clerk Name Role Phone Amber Suarez MD Unavailable [phone] Grace Milian RN Unavailable [phone] Reason for Visit * Reason Comments Results CT 01/02/2025 Encounter Details Date Type Department Care Team (Latest Contact Info) Description 01/02/2025 9:25 AM EDT - 01/02/2025 11:59 PM EDT Hospital Encounter [facility] [place] [address] Amber Suarez MD [address] [place] [address] Lung nodule, multiple (Primary Dx) Discharge Disposition: Home or Self Care Social [...] on file documented as of this encounter Last Filed Vital Signs Vital Sign Reading Time Taken Comments Blood Pressure 152/79 01/02/2025 9:30 AM EDT Pulse 57 01/02/2025 9:30 AM EDT Temperature 36.7 C (98.1 F) 01/02/2025 9:30 AM EDT Respiratory Rate 16 01/02/2025 9:30 AM EDT Oxygen Saturation 98% 01/02/2025 9:30 AM EDT Inhaled Oxygen Concentration - - Weight 103.4 kg (228 lb) 01/02/2025 9:30 AM EDT Height 185.4 cm (6' 1 ) 01/02/2025 9:30 AM EDT Body Mass Index 30.08 01/02/2025 9:30 AM EDT documented in this encounter Medications at Time of Discharge [...] by mouth 2 times daily (with meals). fish oil OTC (OMEGA-3 DHA-EPA 300 MG) 300-1,000 mg Oral Capsule, Delayed Release(E.C.) Take 2 g by mouth daily. lisinopriL (PRINIVIL;ZESTRIL ) 20 mg Oral Tablet tablet Take 20 mg by mouth 2 times daily. 12/24/2022 multivitamin, stress formula (ALLBEE VIT WITH C & B COMPLEX) Oral Tablet Take 1 Tablet by mouth daily. UNABLE TO FIND Take 1 Tablet by mouth nightly. Med Name: Night Gain vit B12/intrinsic fact/folate (INTRINSI S33-MLGNSU ORAL) Take 1 Tablet by mouth daily. ZINC CITRATE ORAL Take by mouth. lactobacillus rhamnosus, GG, (CULTURELLE) 10 billion cell Oral Capsule Take 1 Capsule by mouth daily. documented as of this encounter Discharge Disposition Disposition Code Departure Means Destination Home or Self Care documented in this encounter Progress Notes * Amber Suarez MD - 01/02/2025 11:40 AM EDT Images from the original note were not included. Patient: Shonda Jiang CSN: [id number] Date of : 1955 Age: 69 y.o. 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 Cancer Staging No matching staging information was found for the patient. CURRENT TREATMENT: Observation. INTERVAL HISTORY: CC: Chief Complaint Patient presents with Results CT 01/02/2025 Shonda Jiang is coming today for follow-up. Doing well, no new complaints. Here for follow-up on his scans -no new complaints following with pulmonology. REVIEW OF SYSTEMS: Pertinent information Review of Systems Constitutional: Negative for appetite change, fatigue and unexpected weight change. Respiratory: Negative for cough and shortness of breath. Musculoskeletal: Negative for arthralgias. Neurological: Negative for dizziness and headaches. MEDICATIONS: Medications and allergies reviewed PHYSICAL EXAM: Vitals: 01/02/25 0930 BP: 152/79 Pulse: 57 Resp: 16 Temp: 98.1 ??F (36.7 ??C) SpO2: 98% Wt Readings from Last 2 Encounters: 01/02/25 228 lb (103.4 kg) 10/24/24 223 lb (101.2 kg) ECO Pertinent information Physical Exam Constitutional: General: He is not in acute distress. Appearance: Normal appearance. He is not ill-appearing. Eyes: Extraocular Movements: Extraocular movements intact. Pulmonary: Effort: Pulmonary effort is normal. Musculoskeletal: General: Normal range of motion. Neurological: General: No focal deficit present. Mental Status: He is alert and oriented to person, place, and time. MEDICAL DATA REVIEW: Laboratories, Images and Pathology results reviewed Lab Results Component Value Date/Time WBC 6.9 01/02/2025 08:50 AM RBC 4.51 (L) 01/02/2025 08:50 AM PLT 212 01/02/2025 08:[address]: IMPRESSION: Numerous less than 5 mm nodules all with a benign appearance and many calcified. No suspicious pulmonary nodules. See discussion above. ASSESSMENT & PLAN There are no diagnoses linked to this encounter. 69-year-old male with no significant past medical history was found to have lung nodules on a CT scan done for a different reason He was referred to pulmonology for evaluation and monitoring of lung nodules and has an appointmentwith smoke inspector in February. Today I reviewed images myself (official report not back yet) and compared with previous images which shows stability. I recommended following up with smoke inspector and I do not think he needs to see medical oncology. I explained that I think these are benign nodules andhe would be best served by following with pulmonology. He is a non-smoker. Plan: RTC prn Advance Directives: ADVANCE DIRECTIVE: Not Received Code Status: Not on file Dispo: Return if symptoms worsen or fail to improve. Thank you for the opportunity to assist in the care of this patient, please feel free to contact meif I can be of any assistance. Amber Suarez MD Hematology and Medical Oncology [facility] documented in this encounter Plan of Treatment Upcoming Encounters Date Type Department Care Team (Late st Contact Info) Description 01/26/2026 9:30 AM EDT Appointment [facility] [place] [address] Grisel Yeung MD [address] [place] [phone] documented as of this encounter Visit Diagnoses Diagnosis Lung nodule, multiple- Primary documented in this encounter Historical Medications * This list may reflect changes made after this encounter. fish oil OTC (OMEGA-3 DHA-EPA 300 MG) 300-1,000 mg Oral Capsule, Delayed Release(E.C.) Take 2 g by mouth daily. vit B12/intrinsic fact/folate (INTRINSI F40-TUPUEF ORAL) Take 1 Tablet by mouth daily. added in this encounter Care Teams New Business Clerk Relationship Specialty Start Date End Date Amber Suarez MD [address] [place] [id number] Internal Medicine-Hematology and Oncology 09/04/23 Grace Milian, RN Registered Nurse 09/15/23 documented as of this encounter
--- OUTSIDE RECORDS SUMMARY | 2025-01-29 10:00 | XMS_ITS | Encounter Summary ---
Author Organization [place] [address] Care Team Providers Care Maori Physiotherapist Name Role Phone Amber Suarez MD Unavailable [phone] Grace Milian RN Unavailable [phone] Reason for Referral * MRI/CAT Scan (Routine) - Pending Review Specialty Diagnoses / Procedures Referred By Kelsie alcantara Referred To Contact Radiology Diagnoses Lung nodules Procedures CT CHEST WO CONTRAST Grisel Yeung MD [address] [place] [address] Phone: tel: fax: Referral ID Status Reason Start Date Expiration Date V isits Requested Visits Authorized [id number] Pending Review 01/29/2025 01/29/2026 1 1 Reason for Visit * Reason Comments Follow-up Encounter Details Date Type Department Care Team (Late st Contact Info) Description 01/29/2025 10:00 AM EDT Office Visit SEP Pulmonology [facility] [address] [facility] Building [address] [place] [address] Grisel Yeung MD [address] [place] [address] Lung nodules (Primary Dx) Social History Tobacco Use Types Packs/Day Years [...] Sign Reading Time Taken Comments Blood Pressure 126/72 01/29/2025 9:53 AM EDT Pulse 55 01/29/2025 9:53 AM EDT Temperature - - Respiratory Rate - - Oxygen Saturation 99% 01/29/2025 9:53 AM EDT rar Inhaled Oxygen Concentration - - Weight 102.1 kg (225 lb) 01/29/2025 9:53 AM EDT Height 182.9 cm (6') 01/29/2025 9:53 AM EDT Body Mass Index 30.52 01/29/2025 9:53 AM EDT documented in this encounter Progress Notes * Grisel Yeung MD - 01/29/2025 10:00 AM EDT Images from the original note were not included. No primary care provider on file. JUICE Jiang is a 69 y.o. male who presents for lung nodule Referral from med onc for lung nodules. Has COVID last yr and had CT chest and was found to have lung nodules. Was referred to med onc. Has strong FH of lung cancer. Serial imaging with relatively stable nodules but left sided nodule with changes. Has repeat COVID in 05/2023 and now 07/14. Last office visit 11/12 SOB- asymptomatic Cough- asymptomatic Wheezing is asymptomatic MANNING with miles Weight loss- has not lost weight Farming. Tobacco abuse- Social History Tobacco Use Smoking Status Never Passive exposure: Never Smokeless Tobacco Never . PAST MEDICAL HISTORY Past Medical History: Diagnosis Date Hypertension FAMILY HISTORY Family History Problem Relation Age of Onset Stomach Cancer Mother Lung Cancer Father Lung Cancer Brother SOCIAL HISTORY Social History Socioeconomic History Marital status: Spouse name: Not on file Number of children: Not on file Years of education: Not on file Highest education level: Not on file Occupational History Not on file Tobacco Use Smoking status: Never Passive exposure: Never Smokeless tobacco: Never Vaping Use Vaping status: Never Used Substance and Sexual Activity Alcohol use: Not Currently Drug use: Not on file Sexual activity: Not on file Other Topics Concern Not on file Social History Narrative Not on file Social Drivers of Health Financial Resource Strain: Not on file Food Insecurity: Not on file Transportation Needs: Not on file Physical Activity: Not on file Stress: Not on file Social Connections: Unknown (05/29/2023) Received from [facility] Family and Community Support Help with Day-to-Day Activities: Not on file Lonely or Isolated: Not on file Intimate Partner Violence: Unknown (05/29/2023) Received from [facility] Abuse Screen Unsafe at Home or Work/School: Not on file Feels Threatened by Someone?: Not on file Does Anyone Keep You from Contacting Others or Doint Things Outside the Home?: Not on file Physical Sign of Abuse Present: Not on file Housing Stability: Unknown (05/29/2023) Received from [facility] Housing Stability Current Living Arrangements: Not on file Potentially Unsafe Housing Conditions: Not on file ALLERGIES No Known Allergies MEDICATIONS Current Outpatient Medications Medication Sig Dispense Refill amLODIPine (NORVASC) 5 mg Oral Tablet Take 5 mg by mouth daily. aspirin 81 mg Oral Tablet, Delayed Release (E.C.) Take 81 mg by mouth daily. atorvastatin (LIPITOR) 40 mg Oral Tablet Take 40 mg by mouth daily. calcium carbonate-vitamin D3 250 mg-3.125 mcg (125 unit) Oral Tablet Take 1 Tablet by mouth 2 timesdaily (with meals). fish oil OTC (OMEGA-3 DHA-EPA 300 MG) 300-1,000 mg Oral Capsule, Delayed Release(E.C.) Take 2 g by mouth daily. lactobacillus rhamnosus, GG, (CULTURELLE) 10 billion cell Oral Capsule Take 1 Capsule by mouth daily. (Patient not taking: Reported on 01/02/2025) lisinopriL (PRINIVIL;ZESTRIL) 20 mg Oral Tablet tablet Take 20 mg by mouth 2 times daily. multivitamin, stress formula (ALLBEE VIT WITH C & B COMPLEX) Oral Tablet Take 1 Tablet by mouthdaily. UNABLE TO FIND Take 1 Tablet by mouth nightly. Med Name: Night Gain vit B12/intrinsic fact/folate (INTRINSI Q36-UOMGNM ORAL) Take 1 Tablet by mouth daily. ZINC CITRATE ORAL Take by mouth. No current facility-administered medications for this visit. Vital Signs: There were no vitals taken for this visit. ROS Review of Systems Constitutional: Negative for chills, fever and weight loss. HENT: See HPI for positives Respiratory: See HPI Cardiovascular: Negative for chest pain, palpitations and orthopnea. Gastrointestinal: Negative for heartburn, nausea and vomiting. Musculoskeletal: No diffuse myalgias or arthralgias Skin: Negative for rash. Neurological: Negative for dizziness and sensory change. PHYSICAL EXAM Physical Exam Constitutional: General: He is not in acute distress. Appearance: He is well-developed. He is not diaphoretic. HENT: Head: Normocephalic and atraumatic. Neck: Trachea: No tracheal deviation. Cardiovascular: Rate and Rhythm: Normal rate and regular rhythm. Heart sounds: Normal heart sounds. No murmur heard. Pulmonary: Effort: Pulmonary effort is normal. No respiratory distress. Breath sounds: Normal breath sounds. No wheezing. Abdominal: General: Bowel sounds are normal. There is no distension. Palpations: Abdomen is soft. Lymphadenopathy: Cervical: No cervical adenopathy. Neurological: Mental Status: He is alert and oriented to person, place, and time. RESULTS Lab Results Component Value Date WBC 6.9 01/02/2025 HGB 14.1 01/02/2025 HCT 41.9 01/02/2025 MCV 92.9 01/02/2025 PLT 212 01/02/2025 Lab Results Component Value Date CREATININE 0.82 01/02/2025 BUN 13 01/02/2025 NA 138 01/02/2025 K 4.5 01/02/2025 CL 104 01/02/2025 CO2 26 01/02/2025 No valid procedures specified. Pulmonary Functions Testing Results: No results found for: FEV1 , FVC , UTX5XQR , TLC , DLCO VISIT ORDERS No orders of the defined types were placed in this encounter. Shonda Jiang had no medications administered during this visit. ASSESSMENT/PLAN Patient Active Problem List Diagnosis Hypertension Scattered <5mm nodules. LLL nodule- previously cavity but now fluid filled Strong FH of lung cancer COVID- 06/12 and 07/14. PLAN Negative histo U antigen and fungal serology. serial imaging in 3mos with stable nodule. Radiology recommendations 1 year follow-up. Order CT in 1 yr. RTC 1yr. D/w medical oncology. Irfan Budhani MD. FCCP. [facility]. DAABIP Pulmonary Disease - [place] [employer] Critical Care Medicine- [place] [employer] Medicine Interventional pulmonology- [place] [employer] of Bronchology and Interventional Pumonology Neurocritical Care - [place] [employer] of Psychiatry and Neurology Future Appointments Date Time Provider Department Center 01/29/2025 10:00 AM Grisel Yeung MD [facility] Note was completed using voice recognition technology. Despite best efforts to proof read, it may still contain unintended errors. Please call with questions. 1. The patient indicates understanding of these issues and agrees with the plan. 2. I reviewed the patient's medical information and medical history. 3. I have reviewed the past medical, family, and social history sections including the medications and allergies listed in the above medical record. documented in this encounter Plan of Treatment Upcoming Encounters Date Type Department Care Team (Late st Contact Info) Description 01/26/2026 9:30 AM EDT Appointment [facility] [place] [address] Grisel Yeung MD [address] [place] [address] Scheduled Orders Name Type Priority Associated Diagnoses Orde r Schedule CT CHEST WO CONTRAST Imaging Routine Lung nodules 1 Occurrences starting 01/29/2025 until 01/29/2026 documented as of this encounter Visit Diagnoses Diagnosis Lung nodules- Primary Other nonspecific abnormal finding of lung field documented in this encounter Care Teams Maori Physiotherapist Relationship Specialty Start Date End Date Amber Suarez MD [address] [place] [address] Internal Medicine-Hematology and Oncology 09/04/23 Grace Milian, ZOE Registered Nurse 09/15/23 documented as of this encounter
--- OUTSIDE RECORDS SUMMARY | 2025-02-14 09:35 | XMS_ITS | Clinical Summary ---
Author Organization [facility] Address [address] [place] [address] Care Team Providers Care Supervisor Core Drilling Name Role Phone Pcp, No Primary Care Provider Unavailabl e Social History Tobacco Use Types Packs/Day Years Used Date Smoking Tobacco: Never Assessed Sex and Gender Information Value Date Recorded Sex Assigned at Not on file Legal Sex Male 10:13 AM EDT Gender Identity Not on file Sexual Orientation Not on file Plan of Treatment Health Maintenance Due Date Last Done Comments [facility]-Depression Screening 1955 [facility]-Infant/Child/Adol SDOH Screenings 1955 [facility]- SDOH Screenings 1972 [facility]-Adult SDOH Screenings 1972 CT Colonography 1999 Colonoscopy 1999 FIT-DNA 1999 FIT 1999 FOBT 1999 Sigmoidoscopy 1999 [facility]-Colorectal Cancer Screening 1999 [facility]-Zoster Vaccines (1 of 2) 2004 [facility]-Pneumococcal Vaccine: 50+ Years (2 of 2 - PCV) 08/20/2021 08/20/2020 [id number] Vaccine ( season) 2024 05/11/2022, 12/06/2021, 05/26/2021, Additional history exists [facility]-Influenza Vaccine (Season Ended) 2025 05/20/2020 [facility]-RSV Vaccine: 60+ Years or (1 - 1-dose 75+ series) 2029 [facility]-DTaP,Tdap,and Td Vaccines (2 - Td or Tdap) 11/03/2030 11/03/2020 HPV Vaccines Aged Out No longer eligi ble based on patient's age to complete this topic [facility]-HIB Vaccines Aged Out No longer e ligible based on patient's age to complete this topic [facility]-Hepatitis A Vaccines Aged Out No longer eligible based on patient's age to complete this topic UK[facility]-IPV Vaccines Aged Out No longer e ligible based on patient's age to complete this topic [facility]-Rotavirus Vaccines Aged Out No lo nger eligible based on patient's age to complete this topic Care Teams Supervisor Core Drilling Relationship Specialty Start Date End Date Pcp, No [address] [place] [address] PCP - General Family Medicine 03/04/23
--- OUTSIDE RECORDS SUMMARY | 2025-02-14 09:35 | XMS_ITS | Encounter Summary ---
Author Organization [employer] Address [address] [place] [address] Care Team Providers Care Checkman Name Role Phone Unavailable Primary Care Provider Unavailabl e Encounter Details Date Type Department Care Team (Late st Contact Info) Description 08/23/2019 Transcribed Document [facility] [place] [facility] [place] [address] ProviderLyric MD [address] [id number] Social History Tobacco Use Types Packs/Day Years Used Date Smoking Tobacco: Never Assessed Sex and Gender Information Value Date Recorded Sex Assigned at Not on file Legal Sex Male 3:20 PM CDT Gender Identity Not on file Sexual Orientation Not on file documented as of this encounter Miscellaneous Notes * Cerner Conversion Note - Historical ProviderMD - 08/23/2019 3:00 PM 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 Adult Entered On: 08/23/2019 15:02 EST Performed On: 08/23/2019 15:00 EST by Cathryn Gutierrez RN Height and Weight, Clinical Dosing Height Source : Measured Height Entry Format : [place] Height, Feet : 0 ft(Converted to: 0 cm, 0 Inch) Height, Inches : 74 Inch(Converted to: 6 ft 2 Inch, 187.96 cm) Clinical Height : 187.96 cm Weight Source : Standing scale Weight Entry Format : [place] Clinical Dosing Weight : 99.68 kg Weight, Pounds : 219.3 lb Body Surface Area (BSA) : 2.26 m2 Body Mass Index : 28.2 kg/m2 (HI) [place] Body Weight : 81 kg Nasima Ahn RN - 08/26/2019 10:43 EST Health Histories Smoking Status : Never (less than 100 in lifetime; none in last 30 days) Smokeless Tobacco Status : Never Cathryn Gutierrez RN - 08/23/2019 15:00 EST Social History (As Of: 08/23/2019 15:02:57 EST) Tobacco: Never (less than 100 in lifetime) Smoking Status. (Last Updated: 08/23/2019 15:00:21 EST by Cathryn Gutierrez RN) Alcohol: Alcohol Use History No. (Last Updated: 08/23/2019 15:00:24 EST by Cathryn Gutierrez RN) Substance Abuse: Drug Use Hx: No. (Last Updated: 08/23/2019 15:00:27 EST by Cathryn Gutierrez RN) Infectious Disease History Fever/Chills Last 48 Hours : No Nasima Ahn RN - 08/26/2019 10:43 EST Infectious Disease History : Chicken pox/Shingles, Influenza, Measles, Mumps Travel To Regions with Travel Advisories : No Travel Outside [place] Within Last 30 Days : No Contact With Traveler to Advisory Region : No Tuberculosis Symptoms : None Cathryn Gutierrez RN - 08/23/2019 15:00 EST Anesthesia/Transfusion History Family History of Anesthesia Reaction : No prior transfusion(s) Transfusion History : Prior anesthesia without reaction Family History of Anesthesia Reaction : None Cathryn Gutierrez RN - 08/23/2019 15:00 EST Advance Directive Patient has Advance Directive *Q : No, patient refuses Advance Directive information Cathryn Gutierrez RN - 08/23/2019 15:00 EST [place] Suicide Severity Rating Scale (C-SSRS) CSSRS Past Month Wish to be : No CSSRS Past Month Suicidal Thoughts : No CSSRS Lifetime Suicide Behavior : No Suicide Severity Rating Score : 0 Suicide Severity Rating : No Additional Care Required at this time Cathryn Gutierrez RN - 08/23/2019 15:00 EST Psychosocial History Currently in Unsafe Situation : No Cathryn Gutierrez RN - 08/23/2019 15:00 EST General Info Support Person/Pt Rep Name : Tammy Jiang () [phone] Want Family/Rep/Phys Notified of Admit : No Emergency Contact #1 : x Emergency Contact #1 Phone Number : x Emergency Contact #1 Relationship : x Emergency Contact #2 : x Emergency Contact #2 Phone Number : x Emergency Contact #2 Relationship : x Primary Language : Surinamese Communication Barrier : None Cathryn Gutierrez RN - 08/23/2019 15:00 EST Pantera Scale Pantera Sensory Perception : No impairment Pantera Moisture : Rarely moist Pantera Activity : Walks frequently Pantera Mobility : No limitation Pantera Nutrition : Adequate Pantera Friction and Shear : No apparent problem Pantera Score : 22 Cathryn Gutierrez RN - 08/23/2019 15:00 EST Sleep Apnea Risk Assmt BiPAP/CPAP Ordered for Home Use : Yes Hx of Obstructive Sleep Apnea Diagnosis : Yes BiPAP/CPAP Used at Home : Yes Age over 50 Years Old : Yes Gender Male : Yes Cathryn Gutierrez RN - 08/23/2019 15:00 EST documented in this encounter Plan of Treatment Not on file documented as of this encounter Visit Diagnoses Not on filedocumented in this encounter
--- OUTSIDE RECORDS SUMMARY | 2025-02-14 09:35 | XMS_ITS | Encounter Summary ---
Author Organization [employer] Address [address] [place] [address] Care Team Providers Care Settlement Agent Name Role Phone Unavailable Primary Care Provider Unavailabl e Encounter Details Date Type Department Care Team (Late st Contact Info) Description 08/26/2019 Transcribed Document [facility] [place] [facility] [place] [address] ProviderLyric MD [address] [place] [id number] Social History Tobacco Use Types Packs/Day Years Used Date Smoking Tobacco: Never Assessed Sex and Gender Information Value Date Recorded Sex Assigned at Not on file Legal Sex Male 3:20 PM CDT Gender Identity Not on file Sexual Orientation Not on file documented as of this encounter Miscellaneous Notes * Cerner Conversion Note - Historical ProviderMD - 08/26/2019 12:05 PM JUNIOR COPYWRITER [facility] Main OR Preop Summary Primary Physician: JOHANNA GILMORE MD Finalized Date/Time: 08/26/19 14:55:56 Pt. Name: TIFFANY JOHNSONO.B./Sex: 1955 Male Med Rec #: [id number] Physician: JOHANNA GILMORE MD Financial #: [id number] Pt. Type: O Room/Bed: 18 Admit/Disch: 08/26/19 08:41:00 - 08/26/19 14:20:00 Institution: [facility] PreOp Case Times Entry 1 In Preop 08/26/19 08:56:00 Ready for Holding n/a Room Patient Ready for 08/26/19 11:15:00 Surgery Patient Out of Preop 08/26/19 11:45:00 Patient Out of n/a Holding Room Last Modified By: SARANYA CAMEJO RN 08/26/19 14:55:30 [facility] PreOp Case Times Audit 08/26/19 14:55:30 Beer Brewer: WRIGHTVP Modifier: MCGRANM <+> 1 Patient Out of Preop 08/26/19 11:13:08 Beer Brewer: WRIGHTVP Modifier: WRIGHTVP 1 <*> Patient Ready for Surgery 08/26/19 11:09:00 08/26/19 11:10:43 Beer Brewer: WRIGHTVP Modifier: WRIGHTVP <+> 1 Patient Ready for Surgery Finalized By: SARANYA CAMEJO, RN Document Signatures Signed By: SARANYA CAMEJO RN 08/26/19 14:55 Electronically signed by Stephanie [facility] Conversion Fitter / Welder Cerner at 12/08/2022 8:57 AM CDT documented in this encounter Plan of Treatment Not on file documented as of this encounter Visit Diagnoses Not on filedocumented in this encounter
--- OUTSIDE RECORDS SUMMARY | 2025-02-14 09:35 | XMS_ITS | Encounter Summary ---
Author Organization [employer] Address [address] [place] [address] Care Team Providers Care Production Director Name Role Phone Unavailable Primary Care Provider Unavailabl e Encounter Details Date Type Department Care Team (Late st Contact Info) Description 08/26/2019 Transcribed Document [facility] [place] [facility] [place] [address] ProviderLyric MD [address] [place], [place] [id number] Social History Tobacco Use Types Packs/Day Years Used Date Smoking Tobacco: Never Assessed Sex and Gender Information Value Date Recorded Sex Assigned at Not on file Legal Sex Male 3:20 PM CDT Gender Identity Not on file Sexual Orientation Not on file documented as of this encounter Miscellaneous Notes * Cerner Conversion Note - Historical ProviderMD - 08/26/2019 10:22 AM 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 Patient: TIFFANY JOHNSON Age: 64 years Sex: Male : 1955 Associated Diagnoses: None Author: CARLO MARSHALL APRN Chief Complaint R buttock mass Review of Systems ROS reviewed as documented in chart no change since last seen by surgeon Health Status Allergies: Allergic Reactions (Selected) No Known Allergies, Allergies (1) Active Reaction No Known Allergies None Documented Current medications: (Selected) Documented Medications Documented Co Q-10: mg, Oral, Daily, 0 Refill(s) lysine: mg, Oral, Daily, 0 Refill(s), Home Medications (2) Active Co Q-10 , Oral, Daily lysine , Oral, Daily , No qualifying data available Problem list: All Problems HTN (hypertension) / SNOMED CT 1068755242 / Confirmed History of obstructive sleep apnea / IMO [id number] / Confirmed Diverticulitis / SNOMED CT 142876821 / Confirmed, Active Problems (3) Diverticulitis History of obstructive sleep apnea HTN (hypertension) R buttock mass Histories Past Medical History: Resolved Pneumonia ([id number]): Onset on 11/21/2018 at 63 years. Resolved. Family History: No family history items have been selected or recorded. Procedure history: partial colectomy. exploratory surgery of bowel. colonoscopy x 20. Physical Examination VS/Measurements No qualifying data available General: Alert and oriented, No acute distress. Eye: Pupils are equal, round and reactive to light, Extraocular movements are intact, glasses. HENT: Normocephalic, slightly [place]. Neck: Supple, Non-tender. Respiratory: Lungs are clear to auscultation, Respirations are non-labored. Cardiovascular: Normal rate, Regular rhythm, No murmur, No gallop, No edema. Gastrointestinal: Soft, Non-tender. Genitourinary: No costovertebral angle tenderness. Lymphatics: No lymphadenopathy neck, axilla, groin. Musculoskeletal: Normal range of motion, Normal strength. Integumentary: Warm, Dry, R buttock 15cm soft tissue mass with central point. Neurologic: Alert, Oriented. Psychiatric: Cooperative, Appropriate mood & affect. Review / Management Results review: No qualifying data available. Impression and Plan Condition: Stable. documented in this encounter Plan of Treatment Not on file documented as of this encounter Visit Diagnoses Not on filedocumented in this encounter
--- OUTSIDE RECORDS SUMMARY | 2025-02-14 09:35 | XMS_ITS | Encounter Summary ---
Author Organization [employer] Address [address] [place] [address] Care Team Providers Care Slat Grader Name Role Phone Unavailable Primary Care Provider Unavailabl e Encounter Details Date Type Department Care Team (Late st Contact Info) Description 08/26/[address] [facility] Family Medicine [facility] [place] [address] ProviderLyric MD [address] [place] [address] Social History Tobacco Use Types Packs/Day Years Used Date Smoking Tobacco: Never Assessed Sex and Gender Information Value Date Recorded Sex Assigned at Not on file Legal Sex Male 3:20 PM CDT Gender Identity Not on file Sexual Orientation Not on file documented as of this encounter Miscellaneous Notes * Cerner Conversion Note - Lyric ProviderMD - 08/26/2019 1:57 PM [employer] Patient Education Materials Follows: Surgical Drain Home Care Surgical drains are used to remove extra fluid that normally builds up in a surgical wound after surgery. A surgical drain helps to heal a surgical wound. Different kinds of surgical drains include: ??? Active drains. These drains use suction to pull drainage away from the surgical wound. Drainage flows through a tube to a container outside of the body. It is important to keep the bulb or the drainage container flat (compressed) at all times, except while you empty it. Flattening the bulb or container creates suction. The two most common types of active drains are bulb drains and Hemovac drains. ??? Passive drains. These drains allow fluid to drain naturally, by gravity. Drainage flows through a tube to a bandage (dressing) or a container outside of the body. Passive drains do not need to be emptied. The most common type of passive drain is the Bob drain. A drain is placed during surgery. Immediately after surgery, drainage is usually bright red and a little thicker than water. The drainage may gradually turn yellow or pink and become thinner. It is likely that your health care provider will remove the drain when the drainage stops or when the amount decreases to 1?2 Tbsp (15?30 mL) during a 24-hour period. How to care for your surgical drain ??? Keep the skin around the drain dry and covered with a dressing at all times. ??? Check your drain area every day for signs of infection. Check for: ? More redness, swelling, or pain. ? Pus or a bad smell. ? Cloudy drainage. Follow instructions from your health care provider about how to take care of your drain and how to change your dressing. Change your dressing at least one time every day. Change it more often if needed to keep the dressing dry. Make sure you: 1. Gather your supplies, including: ??? Tape. ??? Germ-free cleaning solution (sterile saline). ??? Split gauze drain sponge: 4 x 4 inches (10 x 10 cm). ??? Gauze square: 4 x 4 inches (10 x 10 cm). 2. Wash your hands with soap and water before you change your dressing. If soap and water are not available, use hand medical grade shoemaker. 3. Remove the old dressing. Avoid using scissors to do that. 4. Use sterile saline to clean your skin around the drain. 5. Place the tube through the slit in a drain sponge. Place the drain sponge so that it covers your wound. 6. Place the gauze square or another drain sponge on top of the drain sponge that is on the wound. Make sure the tube is between those layers. 7. Tape the dressing to your skin. 8. If you have an active bulb or Hemovac drain, tape the drainage tube to your skin 1?2 inches (2.5?5 cm) below the place where the tube enters your body. Taping keeps the tube from pulling on any stitches (sutures) that you have. 9. Wash your hands with soap and water. 10. Write down the color of your drainage and how often you change your dressing. How to empty your active bulb or Hemovac drain 1. Make sure that you have a measuring cup that you can empty your drainage into. 2. Wash your hands with soap and water. If soap and water are not available, use hand medical grade shoemaker. 3. Gently move your fingers down the tube while squeezing very lightly. This is called stripping the tube. This clears any drainage, clots, or tissue from the tube. ??? Do not pull on the tube. ??? You may need to strip the tube several times every day to keep the tube clear. 4. Open the bulb cap or the drain plug. Do not touch the inside of the cap or the bottom of the plug. 5. Empty all of the drainage into the measuring cup. 6. Compress the bulb or the container and replace the cap or the plug. To compress the bulb or the container, squeeze it firmly in the middle while you close the cap or plug the container. 7. Write down the amount of drainage that you have in each 24-hour period. If you have less than 2 Tbsp (30 mL) of drainage during 24 hours, contact your health care provider. 8. Flush the drainage down the toilet. 9. Wash your hands with soap and water. Contact a health care provider if: ??? You have more redness, swelling, or pain around your drain area. ??? The amount of drainage that you have is increasing instead of decreasing. ??? You have pus or a bad smell coming from your drain area. ??? You have a fever. ??? You have drainage that is cloudy. ??? There is a sudden stop or a sudden decrease in the amount of drainage that you have. ??? Your tube falls out. ??? Your active drain?does not stay compressed?after you empty it. This information is not intended to replace advice given to you by your health care provider. Make sure you discuss any questions you have with your health care provider. Document Released: 08/04/2001 Document Revised: 05/08/2018 Document Reviewed: 02/24/2016 ElseTrack Interactive Patient Education ? 2019 [employer] Lipoma Removal, Care After Refer to this sheet in the next few weeks. These instructions provide you with information about caring for yourself after your procedure. Your health care provider may also give you more specific instructions. Your treatment has been planned according to current medical practices, but problems sometimes occur. Call your health care provider if you have any problems or questions after your procedure. What can I expect after the procedure? After the procedure, it is common to have: ??? Mild pain. ??? Swelling. ??? Bruising. Follow these instructions at home: Bathing ??? Do not take baths, swim, or use a hot tub until your health care provider approves. Ask your health care provider if you can take showers. You may only be allowed to take sponge baths for bathing. ??? Keep your bandage (dressing) dry until your health care provider says it can be removed. Incision care ??? Follow instructions from your health care provider about how to take care of your incision. Make sure you: ? Wash your hands with soap and water before you change your bandage (dressing). If soap and water are not available, use hand medical grade shoemaker. ? Change your dressing as told by your health care provider. ? Leave stitches (sutures), skin glue, or adhesive strips in place. These skin closures may need to stay in place for 2 weeks or longer. If adhesive strip edges start to loosen and curl up, you may trim the loose edges. Do not remove adhesive strips completely unless your health care provider tells you to do that. ??? Check your incision area every day for signs of infection. Check for: ? More redness, swelling, or pain. ? Fluid or blood. ? Warmth. ? Pus or a bad smell. Driving ??? Do not drive or operate heavy machinery while taking prescription pain medicine. ??? Do not drive for 24 hours if you received a medicine to help you relax (sedative) during your procedure. ??? Ask your health care provider when it is safe for you to drive. General instructions ??? Take sspn-hqt-amktaba and prescription medicines only as told by your health care provider. ??? Do not use any tobacco products, such as cigarettes, chewing tobacco, and e-cigarettes. These can delay healing. If you need help quitting, ask your health care provider. ??? Return to your normal activities as told by your health care provider. Ask your health care provider what activities are safe for you. ??? Keep all follow-up visits as told by your health care provider. This is important. Contact a health care provider if: ??? You have more redness, swelling, or pain around your incision. ??? You have fluid or blood coming from your incision. ??? Your incision feels warm to the touch. ??? You have pus or a bad smell coming from your incision. ??? You have pain that does not get better with medicine. Get help right away if: ??? You have chills or a fever. ??? You have severe pain. This information is not intended to replace advice given to you by your health care provider. Make sure you discuss any questions you have with your health care provider. Document Released: 10/20/2016 Document Revised: 01/17/2017 Document Reviewed: 10/20/2016 ElseTrack Interactive Patient Education ? 2019 [employer] Incision Care, Adult An incision is a surgical cut that is made through your skin. Most incisions are closed after surgery. Your incision may be closed with stitches (sutures), collin, skin glue, or adhesive strips. You may need to return to your health care provider to have sutures or collin removed. This may occur several days to several weeks after your surgery. The incision needs to be cared for properly to prevent infection. How to care for your incision Incision care ??? Follow instructions from your health care provider about how to take care of your incision. Make sure you: ? Wash your hands with soap and water before you change the bandage (dressing). If soap and water are not available, use hand medical grade shoemaker. ? Change your dressing as told by your health care provider. ? Leave sutures, skin glue, or adhesive strips in place. These skin closures may need to stay in place for 2 weeks or longer. If adhesive strip edges start to loosen and curl up, you may trim the loose edges. Do not remove adhesive strips completely unless your health care provider tells you to do that. ??? Check your incision area every day for signs of infection. Check for: ? More redness, swelling, or pain. ? More fluid or blood. ? Warmth. ? Pus or a bad smell. ??? Ask your health care provider how to clean the incision. This may include: ? Using mild soap and water. ? Using a clean towel to pat the incision dry after cleaning it. ? Applying a cream or ointment. Do this only as told by your health care provider. ? Covering the incision with a clean dressing. ??? Ask your health care provider when you can leave the incision uncovered. ??? Do not take baths, swim, or use a hot tub until your health care provider approves. Ask your health care provider if you can take showers. You may only be allowed to take sponge baths for bathing. Medicines ??? If you were prescribed an antibiotic medicine, cream, or ointment, take or apply the antibiotic as told by your health care provider. Do not stop taking or applying the antibiotic even if your condition improves. ??? Take [id number] and prescription medicines only as told by your health care provider. General instructions ??? Limit movement around your incision to improve healing. ? Avoid straining, lifting, or exercise for the first month, or for as long as told by your health care provider. ? Follow instructions from your health care provider about returning to your normal activities. ? Ask your health care provider what activities are safe. ??? Protect your incision from the sun when you are outside for the first 6 months, or for as long as told by your health care provider. Apply sunscreen around the scar or cover it up. ??? Keep all follow-up visits as told by your health care provider. This is important. Contact a health care provider if: ??? Your have more redness, swelling, or pain around the incision. ??? You have more fluid or blood coming from the incision. ??? Your incision feels warm to the touch. ??? You have pus or a bad smell coming from the incision. ??? You have a fever or shaking chills. ??? You are nauseous or you vomit. ??? You are dizzy. ??? Your sutures or collin come undone. Get help right away if: ??? You have a red streak coming from your incision. ??? Your incision bleeds through the dressing and the bleeding does not stop with gentle pressure. ??? The edges of your incision open up and separate. ??? You have severe pain. ??? You have a rash. ??? You are confused. ??? You faint. ??? You have trouble breathing and a fast heartbeat. This information is not intended to replace advice given to you by your health care provider. Make sure you discuss any questions you have with your health care provider. Document Released: 02/24/2006 Document Revised: 04/14/2017 Document Reviewed: 02/22/2017 Elsevier Interactive Patient Education ? 2019 [employer] documented in this encounter Plan of Treatment Not on file documented as of this encounter Visit Diagnoses Not on filedocumented in this encounter
--- OUTSIDE RECORDS SUMMARY | 2025-02-14 09:35 | XMS_ITS | Clinical Summary ---
Author Organization [employer] Address [address] [facility] [place] [address] Phone Care Team Providers Care Press Set Up Person Name Role Phone Amber Suarez MD Unavailable [phone] Grace Milian RN Unavailable [phone] Allergies No known active allergies Medications lisinopriL (PRINIVIL;ZESTR IL) 20 mg Oral Tablet tablet Take 20 mg by mouth 2 times daily. 12/24/2022 Active calcium carbonate-vitam in D3 250 mg-3.125 mcg (125 unit) Oral Tablet Take 1 Tablet by mouth 2 times daily (with meals). Active ZINC CITRATE ORAL Take by mouth. Active multivitamin, stress formula (ALLBEE VIT WITH C & B COMPLEX) Oral Tablet Take 1 Tablet by mouth daily. Active lactobacillus rhamnosus, GG, (CULTURELLE) 10 billion cell Oral Capsule Take 1 Capsule by mouth daily. Active UNABLE TO FIND Take 1 Tablet by mouth nightly. Med Name: Night Gain Active aspirin 81 mg Oral Tablet, Delayed Release (E.C.) Take 81 mg by mouth daily. Active amLODIPine (NORVASC) 5 mg Oral Tablet Take 5 mg by mouth daily. Active atorvastatin (LIPITOR) 40 mg Oral Tablet Take 40 mg by mouth daily. Active vit B12/intrinsic fact/folate (INTRINSI [id number] ORAL) Take 1 Tablet by mouth daily. Active fish oil OTC (OMEGA-3 DHA-EPA 300 MG) 300-1,000 mg Oral Capsule, Delayed Release(E.C.) Take 2 g by mouth daily. Active Active Problems Problem Noted Date Diagnosed Date Hypertension 03/08/2023 Encounters Date Type Department Care Team Description 01/29/2025 10:00 AM EDT Office Visit [facility] Pulmonology [facility] [address] [facility] [address] [place] [id number] Grisel Yeung MD Lung nodules (Primary Dx) 01/02/2025 9:25 AM EDT - 01/02/2025 11:59 PM EDT Hospital Encounter [facility] [place] [address] Amber Suarez MD Lung nodule, multiple (Primary Dx) Discharge Disposition: Home or Self Care 01/02/2025 8:26 AM EDT - 01/02/2025 9:24 AM EDT Hospital Encounter [facility] [place] [address] Amber Suarez MD Lung nodules Discharge Disposition: Home or Self Care 01/02/2025 7:15 AM EDT - 01/02/2025 8:25 AM EDT Hospital Encounter [facility] [place] [address] Amber Suarez MD Lung nodules Discharge Disposition: Home or Self Care 12/31/2024 Orders Only [facility] [place] [address] Amber Suarez MD Lung nodules (Primary Dx) from Last 3 Months Immunizations Immunization Administration Dates Next Due Influenza High Dose 06/13/2024 Influenza Vaccine Quadrivalent Adjuvanted 2022 Pfizer SARS-CoV-2 Vaccine 12+ Yrs (Purple Cap) 0 10/22/2020 Pneumococcal Polysaccharide 23 Valent 08/20/2020 Quadrivalent Influenza High Dose 05/20/2020 Tdap 11/03/2020 Zoster Recombinant 06/13/2024,02/08/2024 Surgical History Surgery Date Site/Laterality Comments SUBTOTAL COLECTOMY 16 inchs for Diverticulitis Medical History Medical History Date Comments Hypertension Family History Medical History Relation Name Comments Lung Cancer Brother Lung Cancer Father Stomach Cancer Mother Relation Name Status Comments Brother Father Mother Social History Tobacco Use Types Packs/Day Years [...] on file Sexual Orientation Not on file Obstetrics History Last Filed Vital Signs Vital Sign Reading Time Taken Comments Blood Pressure 126/72 01/29/2025 9:53 AM EDT Pulse 55 01/29/2025 9:53 AM EDT Temperature 36.7 C (98.1 F) 01/02/2025 9:30 AM EDT Respiratory Rate 16 01/02/2025 9:30 AM EDT Oxygen Saturation 99% 01/29/2025 9:53 AM EDT rar Inhaled Oxygen Concentration - - Weight 102.1 kg (225 lb) 01/29/2025 9:53 AM EDT Height 182.9 cm (6') 01/29/2025 9:53 AM EDT Body Mass Index 30.52 01/29/2025 9:53 AM EDT Plan of Treatment Upcoming Encounters Date Type Department Care Team (Late st Contact Info) Description 01/26/2026 9:30 AM EDT Appointment [facility] [place] [address] Grisel Yeung MD [address] [place] [address] Health Maintenance Due Date Last Done Comments Wellness Exam Medicare 1958 Hepatitis C Screening 1972 Cologuard 1999 Colon Cancer Screening 1999 Colonoscopy 1999 FIT 1999 Sigmoidoscopy 1999 Virtual Colonography 1999 Pneumococcal Vaccine 50+ (2 of 2 - PCV) 08/20/2021 08/20/2020 COVID-19 Vaccine ( season) 2024 08/09/2023, 05/11/2022, 12/06/2021, Additional history exists DTaP/TDaP/Td (2 - Td or Tdap) 11/03/2030 11/03/2020 Influenza Vaccine Completed 06/13/2024, , 05/20/2020 Zoster Completed 06/13/2024, 02/08/2024 Hepatitis B Vaccine Aged Out No longe r eligible based on patient's age to complete this topic Meningococcal B Vaccine Aged Out No l onger eligible based on patient's age to complete this topic Procedures Procedure Name Priority Date/Time Associated Diagnosis Comments CT CHEST W CONTRAST Routine 01/02/2025 9 :05 AM EDT Lung nodules COMPREHENSIVE METABOLIC PANEL STAT 01/02/2025 8:50 AM EDT Lung nodules CBC WITH DIFF STAT 01/02/2025 8:50 AM EDT Lung nodules from Last 3 Months Results * CT CHEST W CONTRAST (01/02/2025 [...] HISTORY: R91.8-Other nonspecific abnormal finding of lung [id number]. COMPARISON: 10/02/2024 and older studies PROCEDURE COMMENTS: [...] HISTORY: R91.8-Other nonspecific abnormal finding of lung [id number]. COMPARISON: 10/02/2024 and older studies PROCEDURE COMMENTS: [...] of the ordering clinician. Amber Suarez MD [facility] ORDERABLES Final Result * (ABNORMAL) CBC WITH DIFF (01/02/2025 8:50 AM EDT) [facility] WBC 6.9 3.7 - 10.3 x10(3)/mc L 01/02/2025 8:55 AM EDT [facility] RBC 4.51(L) 4.60 - 6.10 x10(6)/mc L 01/02/2025 8:55 AM EDT [facility] Hgb 14.1 13.7 - 17.5 g/dL 01/02/2025 8:55 AM EDT [facility] Hct 41.9 40.0 - 51.0 % 01/02/2025 8:55 AM EDT [facility] MCV 92.9 80.0 - 100.0 fL 01/02/2025 8:55 AM EDT [facility] MCH 31.3 26.0 - 34.0 pg 01/02/2025 8:55 AM EDT [facility] MCHC 33.7 30.7 - 35.5 g/dL 01/02/2025 8:55 AM EDT [facility] RDW 13.2 <=14.9 % 01/02/2025 8:55 AM EDT [facility] Platelet 212 155 - 369 x10(3)/mc L 01/02/2025 8:55 AM EDT [facility] MPV 9.6 8.8 - 12.5 fL 01/02/2025 8:55 AM EDT [facility] Neut # Prelim 4.1 1.6 - 6.1 x10(3)/mc L 01/02/2025 8:55 AM EDT [facility] Comment:Preliminary automate d absolute neutrophil count. Value may change if manual differential is indicated. Neut Percent 59.0 % 01/02/2025 8:55 AM EDT [facility] Comment:Neutrophils equals s egs plus bands Imm Gran% 0.1 % 01/02/2025 8:55 AM EDT [facility] Comment:Automated count of m etamyelocytes, myelocytes and promyelocytes. Lymph Percent 20.1 % 01/02/2025 8:55 AM EDT [facility] Converse Percent 8.5 % 01/02/2025 8:55 AM EDT [facility] Eos Percent 12.0 % 01/02/2025 8:55 AM EDT [facility] Baso Percent 0.3 % 01/02/2025 8:55 AM EDT [facility] Neut # 4.1 1.6 - 6.1 x10(3)/mc L 01/02/2025 8:55 AM EDT [facility] Comment:Neutrophils equals s egs plus bands IMMGRAN# 0.0 0.0 - 0.1 x10(3)/mc L 01/02/2025 8:55 AM EDT [facility] Comment:Automated count of m etamyelocytes, myelocytes and promyelocytes. An absolute IG <0.1 is reported as 0.0. Lymph # 1.4 1.2 - 3.9 x10(3)/mc L 01/02/2025 8:55 AM EDT [facility] Converse # 0.6 0.3 - 0.9 x10(3)/mc L 01/02/2025 8:55 AM EDT [facility] Eos# 0.8(H) 0.0 - 0.5 x10(3)/mc L 01/02/2025 8:55 AM EDT [facility] Baso # 0.0 0.0 - 0.1 x10(3)/mc L 01/02/2025 8:55 AM EDT [facility] Blood VENOUS BLOOD / Unknown Venipuncture / Unknown 01/02/2025 8:50 AM EDT 01/02/2025 8:52 AM EDT us Amber Suarez MD HEMATOLOGY ORDERABLES Fi nal Result [place] [id number] * (ABNORMAL) COMPREHENSIVE METABOLIC PANEL (01/02/2025 8:50 AM EDT) Sodium 138 136 - 145 mmol/L 01/02/2025 9:11 AM EDT [facility] Potassium 4.5 3.5 - 5.0 mmol/L 01/02/2025 9:11 AM EDT [facility] Chloride 104 98 - 107 mmol/L 01/02/2025 9:11 AM EDT [facility] Total CO2 26 22 - 29 mmol/L 01/02/2025 9:11 AM EDT [facility] Anion Gap 8 7 - 16 mmol/L 01/02/2025 9:11 AM EDT [facility] Calcium 9.4 8.8 - 10.4 mg/dL 01/02/2025 9:11 AM EDT [facility] Glucose Lvl 106(H) 70 - 99 mg/dL 01/02/2025 9:11 AM EDT [facility] BUN 13 8 - 23 mg/dL 01/02/2025 9:11 AM EDT [facility] Creatinine 0.82 0.67 - 1.30 mg/dL 01/02/2025 9:11 AM EDT [facility] Albumin 4.3 3.2 - 4.6 gm/dL 01/02/2025 9:11 AM EDT [facility] Total Protein 7.1 6.4 - 8.3 gm/dL 01/02/2025 9:11 AM EDT [facility] Bili Total 0.5 0.2 - 1.4 mg/dL 01/02/2025 9:11 AM EDT [facility] ALT 14 <=41 U/L 01/02/2025 9:11 AM EDT [facility] AST 18 <=40 U/L 01/02/2025 9:11 AM EDT [facility] Alk Phos 82 40 - 129 U/L 01/02/2025 9:11 AM EDT [facility] eGFR (CKD-EPIcr 2020) 94 >=60 mL/min/1.7 3 m2 01/02/2025 9:11 AM EDT [facility] Comment:Estimated GFR was ca lculated using the CKD-EPIcr (2020) equation refit without race. The equation is recommended by the National [employer] - [employer]ph[employer] Task Force. Blood VENOUS BLOOD / Unknown Venipuncture / Unknown 01/02/2025 8:50 AM EDT 01/02/2025 8:52 AM EDT us Amber Suarez MD CHEMISTRY ORDERABLES Fin al Result [facility] [address] [place] [address] from Last 3 Months Insurance [place]ICARE [place] [facility]IC[facility] [place] B MEDIC[facility] Care Teams Press Set Up Person Relationship Specialty Start Date End Date Amber Suarez MD [address] [place] [address] Internal Medicine-Hematology and Oncology 09/04/23 Grace Milian, RN Registered Nurse 09/15/23
--- OUTSIDE RECORDS SUMMARY | 2025-02-14 09:35 | XMS_ITS | Encounter Summary ---
Author Organization [employer] Address [address] [place] [address] Care Team Providers Care Electrostatic Powder Coating Technician Name Role Phone Unavailable Primary Care Provider Unavailabl e Encounter Details Date Type Department Care Team (Late st Contact Info) Description 08/26/2019 Transcribed Document [facility] [place] [facility] [place] [address] ProviderLyric MD [address] [place], [place] [id number] Social History Tobacco Use Types Packs/Day Years Used Date Smoking Tobacco: Never Assessed Sex and Gender Information Value Date Recorded Sex Assigned at Not on file Legal Sex Male 3:20 PM CDT Gender Identity Not on file Sexual Orientation Not on file documented as of this encounter Miscellaneous Notes * Cerner Conversion Note - Lyric ProviderMD - 08/26/2019 12:05 PM SODA DIALYZER [facility] Main OR IntraOp Summary Primary Physician: JOHANNA GILMORE MD Finalized Date/Time: 08/27/19 11:20:53 Pt. Name: DEIDRESHONDA /Sex: 1955 Male Med Rec #: [id number] Physician: JOHANNA GILMORE MD Financial #: [id number] Pt. Type: O Room/Bed: Admit/Disch: 08/26/19 08:41:00 - 08/26/19 14:20:00 Institution: [facility] IntraOp Case Attendance Entry 1 Entry 2 Entry 3 Case Attendee JOHANNA GILMORE MD Montgomery, Hazel, RN CANFIELD, LORI J. Role Performed Surgeon/Proceduralist, Anesthesiologist Assistant, First Scrub, First First Time In 08/26/19 11:48:00 08/26/19 11:48:00 08/26/19 11:48:00 Time Out 08/26/19 12:59:00 08/26/19 12:59:00 08/26/19 12:59:00 Procedure Mass Excision(Right) Mass Excision(Right) Mass Excision(Right) Other Attendee Superficial Wound Closed By: Last Modified By: Lillie Arreola, Lillie Pena, Lillie Pena, ZOE 08/26/19 12:59:18 08/26/19 12:59:18 08/26/19 12:59:18 Entry 4 Entry 5 Entry 6 Case Attendee JONA CASTRO KRISTEN, VAMSI, GRAY OSORIO MD-ANS MORTGAGE PROCESSING MANAGER Role Performed Abrasive Wheel Molder, First MORTGAGE PROCESSING MANAGER/Nurse Firer Glost Kiln Anesthesiologist of Record Time In 08/26/19 11:48:00 08/26/19 11:48:00 08/26/19 11:48:00 Time Out 08/26/19 12:59:00 08/26/19 12:59:00 08/26/19 12:59:00 Procedure Mass Excision(Right) Mass Excision(Right) Mass Excision(Right) Other Attendee Superficial Wound Closed By: Last Modified By: Lillie Arreola RN Montgomery, Hazel, RN Montgomery, Hazel, RN 08/26/19 12:59:18 08/26/19 12:59:18 08/26/19 12:59:18 [facility] IntraOp Case Attendance Audit 08/26/19 12:59:18 Transformer Tester: [email or web address] Modifier: [email or web address] 1 <+> Time Out 1 <*> Procedure Mass Excision(Right) 2 <+> Time In 2 <+> Time Out 2 <*> Procedure Mass Excision(Right) 3 <+> Time In 3 <+> Time Out 3 <*> Procedure Mass Excision(Right) 4 <+> Time In 4 <+> Time Out 4 <*> Procedure Mass Excision(Right) 5 <+> Time In 5 <+> Time Out 5 <*> Procedure Mass Excision(Right) 6 <+> Time In 6 <+> Time Out 6 <*> Procedure Mass Excision(Right) [facility] IntraOp Case Times Entry 1 Patient In Room Time 08/26/19 11:48:00 Out Room Time 08/26/19 12:59:00 Anesthesia Start Time 08/26/19 11:48:00 Stop Time 08/26/19 12:59:00 Surgery / Procedure Times Start Time 08/26/19 12:05:00 Stop Time 08/26/19 12:47:00 Last Modified By: Lillie Arreola RN 08/26/19 12:59:12 [facility] IntraOp Case Times Audit 08/26/19 12:59:12 Transformer Tester: [email or web address] Modifier: [email or web address] <+> 1 Out Room Time <+> 1 Stop Time 08/26/19 12:47:46 Transformer Tester: [email or web address] Modifier: [email or web address] <+> 1 Stop Time [facility] IntraOp Cautery Entry 1 ESU Identification Cautery Type Monopolar ESU ID Number [id number] ID Type Hospital Number Cautery Settings Cut Setting 30 Coag Setting 30 ESU Grounding Pad Ground Pad Type Adult Grounding Pad Site Left thigh Grounding Pad Lillie Arreola RN Applied By Grounding Pad Site Warm, dry and intact Skin Condition Before Cautery Grounding Pad Site Unchanged Skin Condition After Cautery Last Modified By: Lillie Arreola RN 08/26/19 12:09:43 [facility] IntraOp Communication Entry 1 Communication To Family/Significant other Communication By Lillie Arreola RN Date and Time 08/26/19 12:09:00 Last Modified By: Lillie Arreola RN 08/26/19 12:09:52 [facility] IntraOp Counts Verification Entry 1 Procedure Mass Excision(Right) Count Info Count Type Sponge, Sharps, Miscellaneous Counts Verification Baseline/pre-procedure Sequence Counts Performed By Count Performed By JAE CHAUHAN (Scrub) Count Performed By Lillie Arreola RN (RN) Last Modified By: Lillie Arreola RN 08/26/19 12:39:31 [facility] IntraOp Counts Verification Audit 08/26/19 12:39:31 Transformer Tester: [email or web address] Modifier: [email or web address] 1 <*> Procedure Mass Excision(Right) [facility] IntraOp Counts Final Entry 1 Procedure Mass Excision(Right) Final Count Info Count Type Sponge, Sharps, Miscellaneous Counts Verification Skin Closure/end of Sequence procedure Count Results Correct, surgeon notified Counts Performed By Count Performed By JAE CHAUHAN (Scrub) Count Performed By Lillie Arreola RN (RN) Last Modified By: Lillie Arreola RN 08/26/19 12:35:30 [facility] IntraOp Counts Final Audit 08/26/19 12:35:30 Transformer Tester: [email or web address] Modifier: [email or web address] 1 <*> Procedure Mass Excision(Right) 1 <*> Count Type Sponge, Sharps, Instrument 1 <+> Count Performed By (Scrub) 1 <+> Count Performed By (RN) [facility] IntraOp Cultures and Spec Summary Entry 1 Cultrures and Specimens Specimen Ordered: Yes Test(s) Routine/Path-Lab Requested/Final Disposition Last Modified By: Lillie Arreola RN 08/26/19 12:10:21 [facility] IntraOp Departure from OR Entry 1 Integumentary Assessment Transfer/Handoff Transfer to PACU Phase I Handoff Method Bedside/Face to face, Phone call, Online nursing summary Post-op Transport Stretcher/Gurney Via Patient Transport JONA CASTRO, Accompanied by JOHNATHAN CHAWLA APRN, SERGEY Last Modified By: Lillie Arreola RN 08/26/19 12:41:29 [facility] IntraOp Departure from OR Audit 08/26/19 12:41:29 Transformer Tester: [email or web address] Modifier: [email or web address] <+> 1 Patient Transport Accompanied by [facility] IntraOp Drains and Tubes Entry 1 Device Type Yony Garcia round drain Size 10FR Drain/Tube Activity Inserted, Tube secured/stabilized Drain/Tube Suction Bulb Drain/Tube Drainage Serosanguineous Device Location RIGHT BUTTOCK Method of Drainage Compression Tube Dressing Dry, Intact Condition Last Modified By: Lillie Arreola RN 08/26/19 12:32:21 [facility] IntraOp Dressing and Packing Entry 1 Type Dressing Wound Dressing Item Skin Closure Glue, 4x4's Applied By JOHANNA GILMORE MD Other Comments PRESSURE DRESSING Last Modified By: Lillie Arreola RN 08/26/19 12:51:44 [facility] IntraOp Dressing and Packing Audit 08/26/19 12:51:44 Transformer Tester: [email or web address] Modifier: [email or web address] 1 <*> Wound Dressing Item Skin Closure Glue, 4x4's, ABD dressing pad 08/26/19 12:41:13 Transformer Tester: [email or web address] Modifier: [email or web address] 1 <*> Applied By JONA CASTRO <+> Other Comments [facility] IntraOp Fire Risk Assessment Entry 1 Fire Info Surgical Site or 0- No Incision Above the Xyphoid Open O2 Source 0- No (Mask or Cannula) Available Ignition 1- Yes (ESU, Laser, Light Source) Fire Risk 1 Assessment Score Fire Score Fire Risk Yes Assessment Complete Fire Risk Lillie Arreola RN Assessment Verified By Fire Risk 08/26/19 11:48:00 Assessment Verified Date/Time Fire Risk Standard Fire Yes Safety Precautions Followed Last Modified By: Lillie Arreola RN 08/26/19 12:10:50 [facility] IntraOp General Case Vice President Of Finance 1 Case Information OR OR 08 [facility] Case Level 1 Room Verified Yes Wound Class I - Clean Specialty SN Anesthesia Anesthesia Type General ASA Class 2 Diagnosis Preop Diagnosis SOFT TISSUE MASS RIGHT BUTTOCK Postop Same As Preop No Postop Diagnosis SEE MD POST OP NOTES Last Modified By: Lillie Arreola RN 08/26/19 12:12:28 [facility] IntraOp Intraoperative Assessment Entry 1 Handoff Method Online nursing summary Valid History / Yes Physical in Chart Preoperative Yes Checklist Reviewed/Evaluated Allergies Reviewed Yes Patient is Latex No Sensitive Isolation Not applicable Precautions Noted Level of WDL Consciousness (WDL = Alert, Oriented to Person, Place, and Time) Skin Assessment No Verified Present Upon IVs Arrival to OR Last Modified By: Lillie Arreola RN 08/26/19 12:12:39 [facility] IntraOp Intraoperative Equipment Entry 1 Type Monitoring Equipment Equipment Mariaelena Suction System Intraop Monitoring Antiembolic Devices Antiembolic Devices Sequential compression device, knee high Antiembolic Device Bilateral Location Antiembolic Device [id number] ID Number Antiembolic Device SCD'S ON AND WORKING Setting PRIOR TO INDUCTION Scopes Photo/Video Documentation Last Modified By: Lillie Arreola RN 08/26/19 12:13:14 [facility] IntraOp Medication Admin Entry 1 Medication/Irrigant .5%MARCAINE EPI 1:200,00 Route of LOCAL Administration Dose Dose 50 Unit of Measure ml Administered By JOHANNA GILMORE MD Procedure Irrigation Last Modified By: Lillie Arreola RN 08/26/19 12:46:06 [facility] IntraOp Medication Admin Audit 08/26/19 12:46:06 Transformer Tester: [email or web address] Modifier: LAFAVEHM 1 <*> Dose 40 08/26/19 12:39:41 Transformer Tester: [email or web address] Modifier: LAFAVEHM 1 <*> Dose 35 08/26/19 12:35:20 Transformer Tester: [email or web address] Modifier: LAFAVEHM 1 <*> Dose 30 08/26/19 12:28:51 Transformer Tester: [email or web address] Modifier: LAFAVEHM 1 <*> Dose 10 [facility] IntraOp Patient Positioning Entry 1 Procedure Mass Excision(Right) Body Position Prone Left Arm Position Secured on padded arm board Right Arm Position Secured on padded arm board Left Leg Position Uncrossed, parallel Right Leg Position Uncrossed, parallel Feet Uncrossed Yes Pressure Points Yes Checked Positioning Devices Arm Board, Head Rest, Pad, Arm, Pad (Other) Device Position SAFETY STRAP ACROSS ABDOMEN, PILLOWS UNDER LOWER LEGS, FOAM HEADREST AND FOAM ARM POSITIONING PADS, FOAM PADDING UNDER BILATERAL KNEES AND FEET. Positioned By JONA CASTRO MATHIS, RACHEL, MD, JOHNATHAN CHAWLA APRN, MORTGAGE PROCESSING MANAGER, Lillie Arreola, ZOE Position Verified Positioning Yes Verified by Anesthesia Positioning Yes Verified by Surgeon Last Modified By: Lillie Arreola RN 08/26/19 12:15:49 [facility] IntraOp Sign In Entry 1 Patient, Site, Yes Procedure Identified Surgical Consent Yes Confirmed Relevant Surgical Yes Documents Available Surgical Site Yes Marked by person performing procedure Anesthesia Machine Yes Check Completed Medication Checks Yes Completed Allergies Yes Airway Difficult Yes Airway/Aspiration Risk Difficult Yes Airway/Aspiration Intervention Equipment Available Blood Loss Risk No Blood Loss No Intervention Equipment Prepared and Ready Blood Identifiers Not applicable Verified Per Policy Hypothermia Risk Yes Warming Measures Yes Taken Last Modified By: Lillie Arreola RN 08/26/19 12:15:58 [facility] IntraOp Sign Out Entry 1 RN Confirmation Surgical Yes Procedure(s) Identified Instrument, Sponge Yes and Sharps Counts Correct/Documented Equipment Problems N/A Documented Specimen Labeled Yes Correctly Urinary Catheter N/A Documented in IView Moreno Patient Yes Recovery Concerns Reviewed with Anesthesia Provider, Surgeon and RN Moreno Patient Yes Management Concerns Reviewed with Anesthesia Provider, Surgeon and RN Safety Checklist Yes Elements Complete? RN Sign Out Arreola, Lillie, RN Signature RN Sign Out 08/26/19 12:57:00 Signature Date/Time Plan of Care Outcome - Fire Risk OUTCOME STATEMENT: Goal met Patient is free from injury related to surgical fire Plan of Care Outcome - Pt Positioning OUTCOME STATEMENT: Goal met Absence of signs and symptoms of positioning injury. Plan of Care Outcome - Skin Prep OUTCOME STATEMENT: Goal met Intraoperative care is consistent with measures to prevent infection Plan of Care Outcome - Xray/Images OUTCOME STATEMENT: N/A Absence of observable signs or symptoms of radiation injury Plan of Care Outcome - Counts OUTCOME STATEMENT: Goal met Absence of signs and symptoms of injury related to extraneous objects Last Modified By: Lillie Arreola RN 08/26/19 12:57:08 [facility] IntraOp Sign Out Audit 08/26/19 12:57:08 Transformer Tester: [email or web address] Modifier: LAFAVEHM <+> 1 RN Sign Out Signature <+> 1 RN Sign Out Signature Date/Time [facility] IntraOp Skin Prep Entry 1 Procedure Mass Excision(Right) Prescribed Yes Pre-Surgical Prep Completed Prep Area RIGHT BUTTOCK Intraop Prep Prep Agents Chloraprep Prep by Lillie Arreola RN Hair Removal Methods No hair removal performed Last Modified By: Lillie Arreola RN 08/26/19 12:16:16 [facility] IntraOp Surgical Procedures Entry 1 Procedure Mass Excision Modifiers Right Additional (EXCISION OF RT BUTTOCK Procedure SOFT TISSUE MASS) Description Primary Procedure Yes Primary Surgeon JOHANNA GILMORE MD Start 08/26/19 12:05:00 Stop 08/26/19 12:47:00 Anesthesia Type MAC Specialty SN General Wound Class I - Clean Last Modified By: Lillie Arreola RN 08/26/19 12:51:28 [facility] IntraOp Surgical Procedures Audit 08/26/19 12:51:28 Transformer Tester: [email or web address] Modifier: [email or web address] <+> 1 Stop [facility] IntraOp Temp Regulation Devices Entry 1 Temp Regulation Temperature Room temperature, Warm Regulation Device blankets Temperature Device ANGELO HUGGER AVAILABLE Setting AND MANAGED BY ANESTHESIA Temperature JOHNATHAN CHAWLA APRN, Regulation Device MORTGAGE PROCESSING MANAGER Applied by Last Modified By: Lillie Arreola RN 08/26/19 12:17:49 [facility] IntraOP Time Out Entry 1 Procedure to be Mass Excision(Right) Performed Time Out Time Out Pause Time 08/26/19 12:04:00 All activity Yes suspended (unless life threatening emergency) Team Verbally Correct patient Confirms Information identity, Correct side and site are marked, Consent form is present and accurate, Agreement on the procedure to be done, Correct patient position, Relevant images/results properly labeled/appropriately displayed, Confirm antibiotics have been administered, Confirm the skin prep has dried, Performed in location of procedure after prepped/draped Antibiotic Yes Prophylaxis Administered Or In Progress Within the Last 60 Minutes Beta Eber N/A Administered Venous Yes Thromboembolism Prophylaxis Required Anticipated Critical Events Surgeon None expected Anesthesia Provider None expected Nursing Assures Sterility of instruments Essential Imaging N/A Labeled and Displayed Last Modified By: Lillie Arreola RN 08/26/19 12:11:52 Case Comments <None> Finalized By: MUKUND DUNLAP Document Signatures Signed By: Lillie Arreola RN 08/26/19 12:59 MUKUND DUNLAP 08/27/19 11:20 Unfinalized History Date/Time Username Reason for Unfinalizing Freetext Reason for Unfinalizing 08/27/19 11:20 WATTSDR Correct Billing documented in this encounter Plan of Treatment Not on file documented as of this encounter Visit Diagnoses Not on filedocumented in this encounter
--- OUTSIDE RECORDS SUMMARY | 2025-02-14 09:35 | XMS_ITS | Encounter Summary ---
Author Organization [employer] Address [address] [place] [address] Care Team Providers Care Technical Coordinator Name Role Phone Unavailable Primary Care Provider Unavailabl e Encounter Details Date Type Department Care Team (Late st Contact Info) Description 08/26/2019 Transcribed Document [facility] [place] [address] ProviderLyric MD [address] [place], [place] [phone] Social History Tobacco Use Types Packs/Day Years Used Date Smoking Tobacco: Never Assessed Sex and Gender Information Value Date Recorded Sex Assigned at Not on file Legal Sex Male 3:20 PM CDT Gender Identity Not on file Sexual Orientation Not on file documented as of this encounter Miscellaneous Notes * Cerner Conversion Note - Historical ProviderMD - 08/26/2019 12:05 PM 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 Name: TIFFANY JOHNSONO.B./Sex: 1955 Male Med Rec #: [id number] Physician: JOHANNA GILMORE MD Financial #: [id number] Pt. Type: O Room/Bed: 18 Admit/Disch: 08/26/19 08:41:00 - Institution: [facility] Main OR PostOp Case Times Entry 1 In PACU II 08/26/19 13:49:00 Ready for PACU II 08/26/19 14:20:00 Discharge Discharge from PACU 08/26/19 14:20:00 II Last Modified By: Kerry Whitman RN 08/26/19 14:24:00 Finalized By: Kerry Whitman RN Document Signatures Signed By: Kerry Whitman RN 08/26/19 14:24 documented in this encounter Plan of Treatment Not on file documented as of this encounter Visit Diagnoses Not on filedocumented in this encounter
--- OUTSIDE RECORDS SUMMARY | 2025-02-14 09:35 | XMS_ITS | Clinical Summary ---
Author Organization [employer] Address [address] [place] [address] Care Team Providers Care Digital Account Manager Name Role Phone Unavailable Primary Care Provider Unavailabl e Social History Tobacco Use Types Packs/Day Years Used Date Smoking Tobacco: Never Assessed Sex and Gender Information Value Date Recorded Sex Assigned at Not on file Legal Sex Male 3:20 PM CDT Gender Identity Not on file Sexual Orientation Not on file Plan of Treatment Not on file
--- OUTSIDE RECORDS SUMMARY | 2025-02-14 09:35 | XMS_ITS | Encounter Summary ---
Author Organization [employer] Address [address] [place] [address] Care Team Providers Care Boiler Service Technician Name Role Phone Unavailable Primary Care Provider Unavailabl e Encounter Details Date Type Department Care Team (Late st Contact Info) Description 08/26/2019 Transcribed Document [facility] [place] [facility] [place] [address] ProviderLyric MD [address] [place] [phone] Social History Tobacco Use Types Packs/Day Years Used Date Smoking Tobacco: Never Assessed Sex and Gender Information Value Date Recorded Sex Assigned at Not on file Legal Sex Male 3:20 PM CDT Gender Identity Not on file Sexual Orientation Not on file documented as of this encounter Miscellaneous Notes * Cerner Conversion Note - Historical ProviderMD - 08/26/2019 12:05 PM 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 Main OR PACU Summary Primary Physician: JOHANNA GILMORE MD Finalized Date/Time: 08/26/19 13:52:53 Pt. Name: TIFFANY JOHNSONO.B./Sex: 1955 Male Med Rec #: [id number] Physician: JOHANNA GILMORE MD Financial #: [id number] Pt. Type: O Room/Bed: 18 Admit/Disch: 08/26/19 08:41:00 - Institution: [facility] Main OR PACU I Case Times Entry 1 In PACU I 08/26/19 13:00:00 Ready for PACU 08/26/19 13:47:00 Discharge Discharge from PACU 08/26/19 13:47:00 I Last Modified By: CAYETANO CARDONA, ZOE 08/26/19 13:52:11 [facility] Main OR PACU I Case Times Audit 08/26/19 13:52:11 Assembler Adjuster: [id number] Modifier: [id number] <+> 1 Ready for PACU Discharge <+> 1 Discharge from PACU I Finalized By: CAYETANO CARDONA RN Document Signatures Signed By: CAYETANO CARDONA RN 08/26/19 13:52 Electronically signed by [facility] Conversion Hang Gliding Instructor Cerner at 12/08/2022 9:04 AM CDT documented in this encounter Plan of Treatment Not on file documented as of this encounter Visit Diagnoses Not on filedocumented in this encounter
--- OUTSIDE RECORDS SUMMARY | 2025-02-14 09:35 | XMS_ITS | Encounter Summary ---
Author Organization [employer] Address [address] [place] [address] Care Team Providers Care Welfare Centre Manager Name Role Phone Unavailable Primary Care Provider Unavailabl e Encounter Details Date Type Department Care Team (Late st Contact Info) Description 08/26/2019 Transcribed Document [facility] [place] [facility] [place] [address] ProviderLyric MD [facility] [place] [phone] Social History Tobacco Use Types Packs/Day Years Used Date Smoking Tobacco: Never Assessed Sex and Gender Information Value Date Recorded Sex Assigned at Not on file Legal Sex Male 3:20 PM CDT Gender Identity Not on file Sexual Orientation Not on file documented as of this encounter Miscellaneous Notes * Cerner Conversion Note - Historical ProviderMD - 08/26/2019 1:06 PM 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 MRI noted the mass was consistent with a lipoma. Especially given its recent rapid growth, excision was recommended, and the patient agreed to proceed. *Preoperative Diagnosis SOFT TISSUE MASS RIGHT BUTTOCK *Postoperative Diagnosis soft tissue mass of right buttock, gross appearance consistent with lipoma *Surgeon(s) Primary Surgeon JOHANNA GILMORE MD (Surgeon/Proceduralist, ) sourcing assistant: Elie Chew CFA *Procedure Narrative Written informed consent was obtained from the patient. The patient was taken to the operating room, sedated and intubated on the stretcher, then positioned in the prone position on the OR table, taking great care to cushion bony areas and avoid positioning injury. The mass was identified on the right buttock and the area sterilely prepped and draped. A procedural timeout was observed. Local anesthetic was injected around the mass. An elliptical incision was made in the center of the mass and taken down to the subcutaneous tissues. The mass was identified and circumferentially dissected free with a combination of blunt and judicious electrocautery dissection. It was lobulated and grossly appeared like a lipoma. It measured 15 x 13 x 4cm. It was passed off the field for pathology. The wound was inspected and was hemostatic. There was a capsule remaining that was partially excised and the remaining portions fulgurated to encourage scarring and prevention of seroma. A 10F Yony Garcia drain was brought out lateral to the incision through stab incision. This was positioned within the cavity and secured in place with 3-0 nylon suture. The cavity was closed with deep sutures of 3-0 vicryl to close the space. The wound was closed with 3-0 vicryl deep dermal sutures and subcuticular 4-0 monocryl. Surgical glue was then used to dress the incision. After the glue completely dried, a pressure dressing of gauze and silk tape was placed. The patient tolerated the procedure well and was taken to the recovery room in stable condition. Drains/Packs Used 10F round Yony Garcia Anesthesia GRAY JEAN-BAPTISTE MD-ANS (Anesthesiologist of Record) *Estimated Blood Loss 5cc Urine Output no patricia *Findings [id number] lobulated fatty mass, gross appearance consistent with lipoma *Specimen(s) right buttock soft tissue mass Complications none Date of Service Date/Time of Service SN - Proc - Start Time: 08/26/19 12:05:00 (08/26/19 12:16:24) documented in this encounter Plan of Treatment Not on file documented as of this encounter Visit Diagnoses Not on filedocumented in this encounter
--- OUTSIDE RECORDS SUMMARY | 2025-02-14 09:35 | XMS_ITS | Referral Summary ---
Author Organization [employer] Address [address] [place] [address] Care Team Providers Care Brake Operator Heavy Duty Name Role Phone Unavailable Primary Care Provider [...]
--- OUTSIDE RECORDS SUMMARY | 2025-02-14 09:35 | XMS_ITS | Encounter Summary ---
Author Organization [place] [address] Care Team Providers Care Surgical Technician Name Role Phone Amber Suarez MD Unavailable Grace Milian RN Unavailable [phone] Encounter Details Date Type Department Care Team (Late st Contact Info) Description 12/31/2024 Orders Only [facility] Medical Oncology [place] [phone] Amber Suarez MD [address] [place] [address] [phone] Lung nodules (Primary Dx) Social History Tobacco [...] on file documented as of this encounter Plan of Treatment Upcoming Encounters Date Type Department Care Team (Late st Contact Info) Description 01/26/2026 9:[address] [facility] [place] [address] Grisel Yeung MD [address] [place] [address] documented as of this encounter Results * (ABNORMAL) COMPREHENSIVE METABOLIC PANEL (01/02/2025 8:50 AM EDT) Sodium 138 136 - 145 mmol/L 01/02/2025 9:11 AM EDT [facility] Potassium 4.5 3.5 - 5.0 mmol/L 01/02/2025 9:11 AM EDT [facility] Chloride 104 98 - 107 mmol/L 01/02/2025 9:11 AM EDT [facility] Total CO2 26 22 - 29 mmol/L 01/02/2025 9:11 AM EDT [facility] Anion Gap 8 7 - 16 mmol/L 01/02/2025 9:11 AM EDT [facility] Calcium 9.4 8.8 - 10.4 mg/dL 01/02/2025 9:11 AM EDT [facility] Glucose Lvl 106(H) 70 - 99 mg/dL 01/02/2025 9:11 AM EDT [facility] BUN 13 8 - 23 mg/dL 01/02/2025 9:11 AM EDT [facility] Creatinine 0.82 0.67 - 1.30 mg/dL 01/02/2025 9:11 AM EDT [facility] Albumin 4.3 3.2 - 4.6 gm/dL 01/02/2025 9:11 AM EDT [facility] Total Protein 7.1 6.4 - 8.3 gm/dL 01/02/2025 9:11 AM EDT [facility] Bili Total 0.5 0.2 - 1.4 mg/dL 01/02/2025 9:11 AM EDT [facility] ALT 14 <=41 U/L 01/02/2025 9:11 AM EDT [facility] AST 18 <=40 U/L 01/02/2025 9:11 AM EDT [facility] Alk Phos 82 40 - 129 U/L 01/02/2025 9:11 AM EDT [facility] eGFR (CKD-EPIcr 2020) 94 >=60 mL/min/1.7 3 m2 01/02/2025 9:11 AM EDT [facility] Comment:Estimated GFR was ca lculated using the CKD-EPIcr (2020) equation refit without race. The equation is recommended by the [employer] - [place] [employer] Neph[employer] Task Force. Blood VENOUS BLOOD / Unknown Venipuncture / Unknown 01/02/2025 8:50 AM EDT 01/02/2025 8:52 AM EDT us Amber Suarez MD CHEMISTRY ORDERABLES Fin al Result [facility] [address] [place] [phone] * (ABNORMAL) CBC WITH DIFF (01/02/2025 8:50 AM EDT) WBC 6.9 3.7 - 10.3 x10(3)/mc L 01/02/2025 8:55 AM EDT [facility] RBC 4.51(L) 4.60 - 6.10 x10(6)/mc L 01/02/2025 8:55 AM EDT [facility] Hgb 14.1 13.7 - 17.5 g/dL 01/02/2025 8:55 AM EDT [facility] Hct 41.9 40.0 - 51.0 % 01/02/2025 8:55 AM EDT [facility] MCV 92.9 80.0 - 100.0 fL 01/02/2025 8:55 AM EDT [facility] MCH 31.3 26.0 - 34.0 pg 01/02/2025 8:55 AM EDT [facility] MCHC 33.7 30.7 - 35.5 g/dL 01/02/2025 8:55 AM EDT [facility] RDW 13.2 <=14.9 % 01/02/2025 8:55 AM EDT [facility] Platelet 212 155 - 369 x10(3)/mc L 01/02/2025 8:55 AM EDT [facility] MPV 9.6 8.8 - 12.5 fL 01/02/2025 8:55 AM EDT [facility] Neut # Prelim 4.1 1.6 - 6.1 x10(3)/mc L 01/02/2025 8:55 AM EDT [facility] Comment:Preliminary automate d absolute neutrophil count. Value may change if manual differential is indicated. Neut Percent 59.0 % 01/02/2025 8:55 AM T [facility] Comment:Neutrophils equals s egs plus bands Imm Gran% 0.1 % 01/02/2025 8:55 AM EDT [facility] Comment:Automated count of m etamyelocytes, myelocytes and promyelocytes. Lymph Percent 20.1 % 01/02/2025 8:55 AM EDT [facility] [place] Percent 8.5 % 01/02/2025 8:55 AM EDT [facility] Eos Percent 12.0 % 01/02/2025 8:55 AM EDT [facility] Baso Percent 0.3 % 01/02/2025 8:55 AM EDT [facility] Neut # 4.1 1.6 - 6.1 x10(3)/mc L 01/02/2025 8:55 AM T [facility] Comment:Neutrophils equals s egs plus bands IMMGRAN# 0.0 0.0 - 0.1 x10(3)/mc L 01/02/2025 8:55 AM [facility] Comment:Automated count of m etamyelocytes, myelocytes and promyelocytes. An absolute IG <0.1 is reported as 0.0. Lymph # 1.4 1.2 - 3.9 x10(3)/mc L 01/02/2025 8:55 AM EDT [facility] [place] # 0.6 0.3 - 0.9 x10(3)/mc L 01/02/2025 8:55 AM EDT [facility] Eos# 0.8(H) 0.0 - 0.5 x10(3)/mc L 01/02/2025 8:55 AM EDT [facility] Baso # 0.0 0.0 - 0.1 x10(3)/mc L 01/02/2025 8:55 AM EDT [facility] Blood VENOUS BLOOD / Unknown Venipuncture / Unknown 01/02/2025 8:50 AM EDT 01/02/2025 8:52 AM EDT Amber Suarez MD HEMATOLOGY ORDERABLES Fi nal Result [facility] [address] [place] [address] documented in this encounter Visit Diagnoses Diagnosis Lung nodules- Primary Other nonspecific abnormal finding of lung field documented in this encounter Care Teams Surgical Technician Relationship Specialty Start Date End Date Amber Suarez MD [address] [place] [address] Internal Medicine-Hematology and Oncology 09/04/23 Grace Milian, RN Registered Nurse 09/15/23 documented as of this encounter
--- OUTSIDE RECORDS SUMMARY | 2025-02-14 09:35 | XMS_ITS | Encounter Summary ---
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 Name Role Phone Unavailable Primary Care Provider Unavailabl e Encounter Details Date Type Department Care Team (Late st Contact Info) Description 08/26/2019 Transcribed Document [facility] [place] [address] ProviderLyric MD [address] [place] [address] Social History Tobacco Use Types Packs/Day Years Used Date Smoking Tobacco: Never Assessed Sex and Gender Information Value Date Recorded Sex Assigned at Not on file Legal Sex Male 3:20 PM CDT Gender Identity Not on file Sexual Orientation Not on file documented as of this encounter Miscellaneous Notes * Cerner Conversion Note - Historical ProviderMD - 08/26/2019 2:00 PM [employer] [facility] [address] TIFFANY JOHNSON T :1955 Visit Time:08/26/2019 What to do next Your Diagnosis Soft tissue mass Instructions From Your Care Team Diet after Discharge: Resume usual diet as tolerated, Do not drink any alcoholic beverages, Drink at least 8-10 glasses of water per day Activity after Discharge: As tolerated, Rest and relax today, No strenuous activity Lifting Restrictions: No heavy lifting over 10 pounds Driving after Discharge: Do not drive until 24 hours after no longer taking pain medications May Return to Work/School: when cleared by the surgeon Showering/Bathing: _may shower in 48 hours with dressing off, No tub bathing, soaking or swimming Notify Provider of: Wound/Incision Care after Discharge: Keep operative site/wound site clean and dry, _remove outer dressing in 2 days walk 3-5 times per day follow REINA drain instructions sheet provided Discharge Follow Up Instructions: follow up in clinic on Sunday 09/03-- please call for time Activity: Discharge Activity: Activity as tolerated Diet: Discharge Diet: Regular diet as tolerated Wound/Incision Care Instructions: Remove dressing in 48 hours Follow-Up Appointments Follow Up with JOHANNA GILMORE MD When 09/03/2019 11:00 AM EST Comments Appointment has been made Where: [address] [place] [address]- Medications What How Much When Instructions Next Dose acetaminophen (Tylenol 325 mg oral capsule) 2 Capsule(s) Oral Every 6 Hours Duration: 10 Day(s) ibuprofen (ibuprofen 200 mg oral capsule) 3 Capsule(s) Oral Every 6 Hours Duration: 5 Day(s) lysine Oral Every Day oxyCODONE (oxyCODONE 5 mg oral tablet) 1 Tablet(s) Oral Every 6 Hours as needed for as needed for pain Duration: 5 Day(s) Printed Prescription ubiquinone (Co Q-10) Oral Every Day Take your medications faithfully. Do NOT skip medication. Do NOT stop taking medications without the direction of a physician. Carry a list of your medications with you at all times, and take this medication list with you to your first follow up visit. Report any side effects. Avoid herbal remedies unless discussed with your physician. As part of your treatment plan, your physician may have prescribed a limited course of a controlled substance. This medication may be given to help people with moderate or severe pain or for other medical conditions, but there are risks involved with treatment. Common side effects may include nausea, constipation, drowsiness, sweating, itching, dry mouth, and rash. More serious side effects may include cognitive and motor impairment, like problems with thinking, concentrating, alertness, and movement (e.g. slowed reflexes), and driving and operating heavy machinery can be dangerous. It is important for you to talk to your physician if you have these side effects or questions. These controlled substances can produce physical dependence and be habit-forming if taken for an extended period of time, which means that the body has gotten used to them and may experience withdrawal symptoms if they are abruptly stopped. Withdrawal symptoms can include runny nose, sweating, goose bumps, diarrhea, abdominal cramping, rapid heartbeat, difficulty sleeping, and nervousness. Please dispose of unused and medications per pharmacy guidance. Education Materials Surgical Drain Home Care Surgical drains are [...] stops or when the amount decreases to 1???2 Tbsp (15???30 mL) during a 24-hour period. How to [...] and water are not available, use hand community nutrition educator. 3. Remove the old dressing. Avoid using [...] tape the drainage tube to your skin 1???2 inches (2.5???5 cm) below the place where the tube [...] and water are not available, use hand community nutrition educator. 3. Gently move your fingers down the [...] Your tube falls out. ??? Your active drain does not stay compressed after you empty it. This information is not intended to replace advice given to you by your health care provider. Make sure you discuss any questions you have with your health care provider. Document Released: 08/04/2001 Document Revised: 05/08/2018 Document Reviewed: 02/24/2016 [employer] Interactive Patient Education ?? 2019 [employer] Lipoma Removal, Care After Refer to [...] and water are not available, use hand community nutrition educator. ? Change your dressing as told by [...] you to drive. General instructions ??? Take brvi-pnj-scxepuj and prescription medicines only as told by [...] 10/20/2016 Document Revised: 01/17/2017 Document Reviewed: 10/20/2016 [employer] Patient Education ?? 2019 [employer] Incision Care, Adult An incision is [...] and water are not available, use hand community nutrition educator. ? Change your dressing as told by [...] even if your condition improves. ??? Take pntt-byy-amnoiey and prescription medicines only as told by [...] 02/24/2006 Document Revised: 04/14/2017 Document Reviewed: 02/22/2017 [employer] Interactive Patient Education ?? 2019 [employer]. oxycodone (ox i KOE done) Oxaydo, OxyCONTIN, Oxyfast, Roxicodone, Xtampza ER What is the most important information I should know about oxycodone? MISUSE OF OPIOID MEDICINE CAN CAUSE ADDICTION, OVERDOSE, OR . Keep the medication in a place where others cannot get to it. Taking opioid medicine during may cause life-threatening withdrawal symptoms in the . Fatal side effects can occur if you use opioid medicine with alcohol, or with other drugs that cause drowsiness or slow your breathing. What is oxycodone? Oxycodone is an opioid pain medication used to treat moderate to severe pain. The extended-release form of oxycodone is for wxjnpq-dsv-szgkc treatment of pain and should not be used on an as-needed basis for pain. Oxycodone may also be used for purposes not listed in this medication guide. What should I discuss with my healthcare provider before using oxycodone? You should not use oxycodone if you are allergic to it, or if you have: ?? severe asthma or breathing problems; or ?? a blockage in your stomach or intestines. You should not use oxycodone unless you are already using a similar opioid medicine and are tolerant to it. Most brands of oxycodone are not approved for use in people under 18. OxyContin should not be given to a child younger than 11 years old. Tell your doctor if you have ever had: ?? breathing problems, sleep apnea; ?? a head injury, or seizures; ?? drug or alcohol addiction, or mental illness; ?? liver or kidney disease; ?? urination problems; or ?? problems with your gallbladder, pancreas, or thyroid. If you use opioid medicine while you are , your baby could become dependent on the drug. This can cause life-threatening withdrawal symptoms in the baby after it is born. Babies born dependent on opioids may need medical treatment for several weeks. Do not breast-feed. Oxycodone can pass into breast milk and may cause drowsiness, breathing problems, or in a nursing baby. How should I use oxycodone? Follow the directions on your prescription label and read all medication guides. Never use oxycodone in larger amounts, or for longer than prescribed. Tell your doctor if you feel an increased urge to take more of this medicine. Never share opioid medicine with another person, especially someone with a history of drug abuse or addiction. MISUSE CAN CAUSE ADDICTION, OVERDOSE, OR . Keep the medication in a place where others cannot get to it. Selling or giving away opioid medicine is against the law. Stop taking all other gjffcz-kwd-qemce narcotic pain medicines when you start taking extended-release oxycodone. Take oxycodone with food. Swallow the capsule or tablet whole to avoid exposure to a potentially fatal overdose. Do not crush, chew, break, open, or dissolve. Never crush or break an oxycodone pill to inhale the powder or mix it into a liquid to inject the drug into your vein. This can cause in . Measure liquid medicine carefully. Use the dosing syringe provided, or use a medicine dose-measuring device (not a kitchen spoon). You should not stop using oxycodone suddenly. Follow your doctor's instructions about tapering your dose. Store at room temperature, away from heat, moisture, and light. Keep track of your medicine. Oxycodone is a drug of abuse and you should be aware if anyone is using your medicine improperly or without a prescription. Do not keep leftover opioid medication. Just one dose can cause in someone using this medicine accidentally or improperly. Ask your pharmacist where to locate a drug take-back disposal program. If there is no take-back program, flush the unused medicine down the toilet. What happens if I miss a dose? Since oxycodone is used for pain, you are not likely to miss a dose. Skip any missed dose if it is almost time for your next dose. Do not use two doses at one time. What happens if I overdose? Seek emergency medical attention or call the Poison Help line at . An oxycodone overdose can be fatal, especially in a child or other person using the medicine without a prescription. Overdose can cause severe muscle weakness, pinpoint pupils, very slow breathing, extreme drowsiness, or coma. What should I avoid while using oxycodone? Do not drink alcohol. Dangerous side effects or could occur. Avoid driving or operating machinery until you know how oxycodone will affect you. Dizziness or severe drowsiness can cause falls or other accidents. Avoid medication errors. Always check the brand and strength of oxycodone you get from the pharmacy. What are the possible side effects of oxycodone? Get emergency medical help if you have signs of an allergic reaction: hives; difficult breathing; swelling of your face, lips, tongue, or throat. Opioid medicine can slow or stop your breathing, and may occur. A person caring for you should seek emergency medical attention if you have slow breathing with long pauses, blue colored lips, or if you are hard to wake up. Call your doctor at once if you have: ?? noisy breathing, sighing, shallow breathing, breathing that stops during sleep; ?? a slow heart rate or weak pulse; ?? a light-headed feeling, like you might pass out; ?? confusion, unusual thoughts or behavior; ?? seizure (convulsions); or ?? low cortisol levels-- nausea, vomiting, loss of appetite, dizziness, worsening tiredness or weakness. Seek medical attention right away if you have symptoms of serotonin syndrome, such as: agitation, confusion, fever, sweating, fast heart rate, chest pain, feeling short of breath, muscle stiffness, trouble walking, or feeling faint. Serious side effects may be more likely in older adults and those who are malnourished or debilitated. Long-term use of opioid medication may affect fertility (ability to have children) in men or women. It is not known whether opioid effects on fertility are permanent. Common side effects may include: ?? drowsiness, headache, dizziness, tiredness; or ?? constipation, stomach pain, nausea, vomiting. This is not a complete list of side effects and others may occur. Call your doctor for medical advice about side effects. You may report side effects to FDA at 7-334-HWR-3992. What other drugs will affect oxycodone? You may have breathing problems or withdrawal symptoms if you start or stop taking certain other medicines. Tell your doctor if you also use an antibiotic, antifungal medication, heart or blood pressure medication, seizure medication, or medicine to treat HIV or hepatitis C. Opioid medication can interact with many other drugs and cause dangerous side effects or . Be sure your doctor knows if you also use: ?? cold or allergy medicines, bronchodilator asthma/COPD medication, or a diuretic ('water pill'); ?? medicines for motion sickness, irritable bowel syndrome, or overactive bladder; ?? other narcotic medications--opioid pain medicine or prescription cough medicine; ?? a sedative like Valium--diazepam, alprazolam, lorazepam, Xanax, Klonopin, Versed, and others; ?? drugs that make you sleepy or slow your breathing--a sleeping pill, muscle relaxer, medicine to treat mood disorders or mental illness; or ?? drugs that affect serotonin levels in your body--a stimulant, or medicine for depression, Parkinson's disease, migraine headaches, serious infections, or nausea and vomiting. This list is not complete and many other drugs may affect oxycodone. This includes prescription and zlwt-avq-umrnxkq medicines, vitamins, and herbal products. Not all possible drug interactions are listed here. Where can I get more information? Your pharmacist can provide more information about oxycodone. Remember, keep this and all other medicines out of the reach of children, never share your medicines with others, and use this medication only for the indication prescribed. Every effort has been made to ensure that the information provided by [employer]. ('[employer]') is accurate, up-to-date, and complete, but no guarantee is made to that effect. Drug information contained herein may be time sensitive. [employer] information has been compiled for use by healthcare practitioners and consumers in the [place] and therefore [employer] does not warrant that uses outside of the [place] are appropriate, unless specifically indicated otherwise. [employer] drug information does not endorse drugs, diagnose patients or recommend therapy. [employer] drug information is an informational resource designed to assist licensed healthcare practitioners in caring for their patients and/or to serve consumers viewing this service as a supplement to, and not a substitute for, the expertise, skill, knowledge and judgment of healthcare practitioners. The absence of a warning for a given drug or drug combination in no way should be construed to indicate that the drug or drug combination is safe, effective or appropriate for any given patient. [employer] does not assume any responsibility for any aspect of healthcare administered with the aid of information [employer] provides. The information contained herein is not intended to cover all possible uses, directions, precautions, warnings, drug interactions, allergic reactions, or adverse effects. If you have questions about the drugs you are taking, check with your doctor, nurse or pharmacist. Copyright 4936-4486 [employer]. Version: 13.03. Revision Date: 06/03/2019. Emergency Awareness and Preventative Care STROKE is an EMERGENCY Every Minute Counts Act FAST and Check for these signs: FACE Does the face look uneven? ARM Does one arm drift down? SPEECH Does their speech sound strange? TIME Call at any sign of stroke Stroke Risk Factors Atrial Fibrillation (irregular heartbeat) Diabetes Family history of stroke Heart Disease Heavy alcohol use High Blood Pressure High Cholesterol Physical inactivity and obesity Smoking Cigarette Smoking The facts are clear, cigarette smoking will shorten your life. Smoking can cause many illnesses along the way. As a healthcare provider, we recommend that you stop smoking. Assistance with quitting is available by contacting 4-358-CBFRNOW. This is a free resource providing counseling, support, and referral. Or you may contact your personal physician. National Suicide Prevention Lifeline: The National Suicide Prevention Lifeline is a national network of local crisis centers that provides free and confidential emotional support to people in suicidal crisis or emotional distress 24 hours a day, 7 days a week. Don't Wait! Stop a Heart Attack Before it Starts What is a heart attack? A heart attack is damage or to a part of the heart from severely decreased or lack of blood flow to the heart. Over time, arteries can become narrow from the buildup of fat and cholesterol, which is called plaque. The plaque can rupture causing a blood clot to form. When the blood clot forms, the artery can become severely narrowed or completely blocked, causing a heart attack. Heart attack is the leading cause of in the [place]. 85% of muscle damage occurs within the first 2 hours. Delay in the recognition of heart attack symptoms increases the chances of . Know the early symptoms of a heart attack: Nausea Feeling of fullness in chest Jaw Pain Pain that travels down one or both arms Fatigue/being tired Anxiety Back Pain Chest pressure, squeezing, or discomfort Shortness of breath Sweating, or a cold sweat Feeling of impending doom There are unusual signs of a heart attack, too! Women, the elderly, and diabetics may present with atypical symptoms: Fainting/dizziness Weakness Confusion Risk Factors for a Heart Attack Some heart disease risk factors, such as age and family history, cannot be changed. Others, like smoking and lack of exercise, can be changed. Smoking High Cholesterol High Blood Pressure Family History Obesity Age Gender (Males are at higher risk) Lack of Exercise Diabetes Diet Stress Excessive Alcohol Intake If you or someone you know is experiencing the signs and symptoms of a heart attack, DON???T DELAY. Call immediately and seek help. If someone collapses, perform CPR! Do not attempt to drive if you are having symptoms of heart attack. Hands-Only CPR Why Hands-Only CPR? Hands-Only CPR has been shown to be as effective as conventional CPR for cardiac arrests that occur outside of a hospital. Survival depends on immediately receiving CPR from someone nearby. How do you perform Hands-Only CPR? There are two easy steps: Call if you see a teen or adult collapse Push hard and fast in the center of the chest at a beat of 100 beats per minute. Save a life! 4 WAYS TO GET AHEAD OF SEPSIS SEPSIS is a MEDICAL EMERGENCY. Time matters! Infections put you and your family at risk for a life-threatening condition called sepsis. Sepsis is the body's extreme response to an infection. It is life-threatening, and without timely treatment, sepsis can rapidly lead to tissue damage, organ failure, and . Sepsis happens when an infection you already have-in your skin, lungs, urinary tract or somewhere else-triggers a chain reaction throughout your body. 1 PREVENT INFECTIONS Take good care of chronic conditions. Talk to your doctor about getting the recommended vaccines. 2 PRACTICE GOOD HYGIENE Wash your hands frequently. Keep cuts or open sores clean and covered until they are healed. 3 KNOW THE SYMPTOMS Confusion or disorientation Shortness of breath High heart rate Fever, shivering, or feeling very cold Extreme pain or discomfort Clammy or sweaty skin 4 ACT FAST Get medical care IMMEDIATELY if you suspect sepsis or if you have an infection that is not getting better or is getting worse. To learn more about sepsis and how to prevent infections, visit www.cdc.gov/sepsis. Test Results Laboratory or Other Results This Visit (last charted value for your 08/26/2019 visit) No Laboratory or Other Results This Visit Patient Name:TIFFANY JOHNSON I have received this information and was given the opportunity to ask questions. Patient/Group Fitness Manager Name: Patient/Group Fitness Manager Signature: Relationship to Patient: Clinician/Hospital Group Fitness Manager Signature: Date: documented in this encounter Plan of Treatment Not on file documented as of this encounter Visit Diagnoses Not on filedocumented in this encounter
[2025-02-14 10:57] LABS: Prostate Specific Ag Screen 0.4 ng/ml (0.0-4.0)
[2025-02-16 14:22] LABS: Lipoprotein A 96.6 nmol/L (<75.0)
[2025-02-17 02:08] LABS: Testosterone,Free 6.4 pg/mL (6.6-18.1)
== END 2025-02-14 23:59 | disposition home or self-care (01) ==
LOC: LAB 09:33
PROVIDERS: PCP Internal Medicine; Visit Provider Family Medicine
DX: I25.10 Atherosclerotic heart disease of native coronary artery without angina pectoris (principal); M62.81 Muscle weakness (generalized); E29.1 Testicular hypofunction; Z12.5 Encounter for screening for malignant neoplasm of prostate
CPT/HCPCS: 36415; 83090; 83695; 84402; 84403; G0103